=== PATIENT | male | born 1960 | race Caucasian/White ===

== ENCOUNTER → 2017-06-19 | Outpatient (CLI) | payer BC ==
--- NOTE | 2017-06-20 08:29 | XR ---
Left knee HISTORY: Pain in left knee, M25.562 3 views of the left knee No comparisons Bone mineralization and alignment are maintained. Possible mild joint space loss lateral patellar fac et, medial compartment. Suprapatellar increased density may be indicative of effusion however there i s overlying artifact. No fracture or dislocation. There may be some soft tissue swelling. IMPRESSION: No acute abnormality. Knee MRI may be of benefit. There may be mild osteoarthritis.
== END | disposition home or self-care (01) ==
LOC: RADXRMAIN 16:47
PROVIDERS: ATTEND Family Medicine
DX: M25.562 Pain in left knee (principal)

== ENCOUNTER → 2018-11-22 | Outpatient (CLI) | payer BC ==
--- NOTE | 2018-11-22 19:22 | P.STRESS ---
- Stress Test Note Stress Test Results/Findings: Exam Performed: stress test Exam Date: 11/22/18 Reason for Exam: CHEST PAIN Height: 5 ft 9 in Weight: 92.533 kg Protocol: ETT Stage: 2 Duration of Exercise: 6:31 Resting Heart Rate: 77 Resting Blood Pressure: 149/82 Maximum Achieved Heart Rate: 139 Maximum Achieved Blood Pressure: 227/77 85% PMHR: 137 100% PMHR: 161 METS: 7.9 Technologist Comment: Stress Test Results/Findings: This is a 57-year-old gentleman being evaluated for symptoms of chest pain. Stress data: Baseline EKG showed sinus rhythm with normal DE interval and QRS duration. Blood pressure at rest is 149/82 with pulse rate of 77. Patient walked on the Eliecer protocol for about 6 minutes and 31 seconds achieving a maximal rate of 139 with blood pressure 227/77. EKGs taken during and after the exercise did not reveal any significant changes from the baseline. Patient did not express any chest pain, complained of mild shortness of breath. Occasional PVCs were noted. Final impression: #1. Negative stress test #2 patient did not express any chest pain #3. Rare PVCs were noted
== END | disposition home or self-care (01) ==
LOC: RADNMMAIN 10:52
PROVIDERS: ATTEND Family Medicine
DX: R07.89 Other chest pain (principal)
CPT/HCPCS: 93017

== ENCOUNTER → 2019-01-04 | Day surgery (SDC) | payer BC ==
[2019-01-03 08:33] VITALS: BMI 30.1
[~2019-01-04] MED LIST: MIDAZOLAM 2 MG/2 ML VIAL IVP ONE; SODIUM CHLORIDE 0.9% 1,000 ML IV SCH; SODIUM CHLORIDE 0.9% 500 ML 500 ML IV ONE; fentaNYL (PF) 50 MCG/ML 2 ML AMP IVP ONE; fentaNYL (PF) 50 MCG/ML 2 ML AMP ONE
[2019-01-04 11:06] VITALS: TEMP 98
[2019-01-04] MEDS: BENZOCAINE SPRAY 1 CAN MUCOUS MEM ONE ×2 (12:02→12:07)
[2019-01-04] MEDS: MIDAZOLAM 2 MG/2 ML VIAL IVP ONE ×4 (12:13→12:20)
--- NOTE | 2019-01-04 12:52 | ECHOT ---
TRANSESOPHAGEAL ECHOCARDIOGRAM PREOPERATIVE DIAGNOSIS: Mitral regurgitation. POSTOPERATIVE DIAGNOSIS: Mitral regurgitation. Patient was given intravenous sedation with Versed and fentanyl and transesophageal echocardiogram was performed without any complications. Left ventricular chamber is normal in size with normal left ventricular systolic functions. There is a mild thickening of the mitral leaflet is noted with a severe prolapse of the posterior mitral leaflet, particularly involving the middle scallop. There is the flickering echo noted suggestive of a ruptured chordae tendineae. There is evidence of severe mitral regurgitation which is eccentric and there is a reversal of flow noted in the pulmonary vein. The left atrium is mildly dilated. There is no evidence of thrombus in the atrial appendage. The aortic wall morphology is normal. There is a mild aortic regurgitation is noted. The right ventricle and right atrium are normal in size. Interatrial septum is intact. There is no evidence of any PFO. Descending thoracic aorta is normal. FINAL IMPRESSION: 1. There is a mild thickening of the mitral leaflets noted with a severe prolapse or flail posterior mitral leaflet, particularly involving the middle scallop. 2. There is a severe mitral regurgitation with reversal of flow noted in the pulmonary vein. 3. The flow is eccentric and anteriorly directed. 4. The left atrium is mildly enlarged. 5. There is no evidence of thrombus in left atrial appendage. 6. There is a mild aortic regurgitation noted. 7. Interatrial septum is intact. There is no evidence of any patent foramen ovale. MMODL / IJN: [id number] /
[2019-01-04 13:35] VITALS: RESP 16
[2019-01-04 13:38] VITALS: BP 152/81; PULSE 99
== END ==
LOC: CATHCVL 10:27
PROVIDERS: ATTEND Internal Medicine Cardiovascular Disease
DX: I08.0 Rheumatic disorders of both mitral and aortic valves (principal); I10 Essential (primary) hypertension; Z79.899 Other long term (current) drug therapy
CPT/HCPCS: 93312; 93320; 93325; J2250; J3010

== ENCOUNTER → 2020-07-31 | Outpatient (CLI) | payer BC ==
--- NOTE | 2020-07-31 12:10 | US ---
EXAMINATION TYPE: US abdomen complete DATE OF EXAM: 07/31/2020 COMPARISON: NONE CLINICAL HISTORY: 59-year-old male R10.9 Unspecified abdominal pain. TECHNIQUE: Multiple sonographic images of the abdomen are obtained. FINDINGS: Culture Manager notes: Exam limited due to body habitus EXAM MEASUREMENTS: Liver Length: 15.7 cm Gallbladder Wall: .3 cm CBD: .7 cm Spleen: 10.7 cm Right Kidney: 10 x 4.2 x 3.3 cm Left Kidney: 10.8 x 4.7 x 4.0 cm Pancreas: Obscured by bowel gas Liver: wnl Gallbladder: No stones seen Evidence for sonographic Leong's sign: No CBD: Borderline to mildly dilated. Spleen: wnl Kidneys: No hydronephrosis. Upper IVC: limited due to bowel gas Abd Aorta: wnl IMPRESSION: 1. Bile duct borderline to mildly dilated at 7 mm. This may be normal a chronic for this patient. Cor relate with alkaline phosphatase and bilirubin levels to exclude early biliary obstruction. 2. No gallstones are seen.
== END | disposition home or self-care (01) ==
LOC: RADUSWWP 07:34
PROVIDERS: ATTEND Family Medicine
DX: K83.8 Other specified diseases of biliary tract (principal)
CPT/HCPCS: 76700

== ENCOUNTER 2021-02-05 11:37 | Emergency (ER) | payer BC ==
[2021-02-05 11:41] VITALS: TEMP 97.4
[2021-02-05] MEDS ORDERED: SODIUM CHLORIDE 0.9% 500 ML 500 ML IV STA (12:08)
--- NOTE | 2021-02-05 12:18 | ED ---
General Adult HPI - General Chief complaint: Chest Pain Stated complaint: Feeling faint Time Seen by Provider: 02/05/21 12:00 Source: patient, RN notes reviewed, old records reviewed Mode of arrival: ambulatory Limitations: no limitations - History of Present Illness Initial comments: 60-year-old male presenting for evaluation of generalized weakness, fatigue, lightheadedness. Additional complaint of some epigastric and lower chest pain which is been present throughout the day today. He has had history of epigastric abdominal pain for several months. Today he felt unwell. He states he's had a mild morning cough which is unchanged. No fever. He states he's felt somewhat shaky today. He has a history of hypertension. No history of CAD. He denies significant dyspnea. He denies vomiting. Denies fever. Denies lower extremity pain or swelling. Severity scale (1-10): 0 - Related Data Home Medications Medication Instructions Recorded Confirmed Dicyclomine [Bentyl] 10 mg PO TID PRN 02/05/21 02/05/21 lisinopriL [Zestril] 40 mg PO DAILY 02/05/21 02/05/21 Allergies Allergy/AdvReac Type Severity Reaction Status Date / Time No Known Allergies Allergy Verified 02/05/21 13:49 Review of Systems ROS Statement: Those systems with pertinent positive or pertinent negative responses have been documented in the HPI. ROS Other: All systems not noted in ROS Statement are negative. Past Medical History Past Medical History: Hypertension Additional Past Medical History / Comment(s): Heart murmur. History of Any Multi-Drug Resistant Organisms: None Reported Additional Past Surgical History / Comment(s): Carpal tunnel release right wrist. Past Anesthesia/Blood Transfusion Reactions: Motion Sickness Additional Past Anesthesia/Blood Transfusion Reaction / Comment(s): Has never had general anesthesia. Past Psychological History: No Psychological Hx Reported Smoking Status: Never smoker Past Alcohol Use History: Occasional Past Drug Use History: None Reported - Past Family History Father Family Medical History: Cancer Additional Family Medical History / Comment(s): Lung cancer. General Exam Limitations: no limitations General appearance: alert, in no apparent distress Head exam: Present: atraumatic, normocephalic Eye exam: Present: normal appearance, PERRL ENT exam: Present: normal exam Neck exam: Present: normal inspection. Absent: tenderness, meningismus Respiratory exam: Present: normal lung sounds bilaterally. Absent: respiratory distress, wheezes Cardiovascular Exam: Present: regular rate, normal rhythm GI/Abdominal exam: Present: soft. Absent: distended, tenderness, guarding, rebound Extremities exam: Present: normal inspection, normal capillary refill. Absent: pedal edema, calf tenderness Neurological exam: Present: alert, oriented X3, CN II-XII intact. Absent: motor sensory deficit Psychiatric exam: Present: normal affect, normal mood Skin exam: Present: warm, dry, intact. Absent: cyanosis, diaphoretic Course Vital Signs 02/05/21 02/05/21 02/05/21 11:39 12:05 13:52 Temperature 97.4 F L Pulse Rate 109 H 104 H Pulse Rate [ 100 Sitting] Pulse Rate [ 108 H Standing] Pulse Rate [ 101 H Supine] Respiratory 18 20 18 Rate Blood Pressure 165/77 144/88 Blood Pressure 141/84 [Sitting] Blood Pressure 157/87 [Standing] Blood Pressure 158/97 [Supine] O2 Sat by Pulse 96 95 99 Oximetry - Reevaluation(s) Reevaluation #1: 02/05/21 14:49 Patient feeling better, no chest pain. Patient prefers to be discharged home with outpatient follow-up. EKG Findings - EKG Comments: EKG Findings:: EKG: Sinus tachycardia, rate of 101, SD interval 178, QRS duration 94, QTC 438, no ST segment elevation Medical Decision Making - Medical Decision Making 60-year-old male with chief complaint of weakness and fatigue. He did report some mild chest discomfort which he states he had been present throughout the day today. No typical chest pain symptoms. EKG sinus rhythm without ST segment elevation. Chest x-rays negative for acute cardiac primary disease he has normal CBC, normal CMP, negative troponin, negative coronavirus test. I did initially plan to place this patient observation for serial cardiac enzymes and telemetry, although patient states she's feeling better prefers discharge with outpatient follow-up. He states he does have good follow-up with his primary care physician Dr. Baker. He is given strict return parameters. - Lab Data Result diagrams: 02/05/21 12:13 02/05/21 12:13 Lab Results 02/05/21 02/05/21 02/05/21 Range/Units 12:13 12:13 12:13 WBC 7.1 (3.8-10.6) k/uL RBC 4.79 (4.30-5.90) m/uL Hgb 15.7 (13.0-17.5) gm/dL Hct 45.7 (39.0-53.0) % MCV 95.4 (80.0-100.0) fL MCH 32.8 (25.0-35.0) pg MCHC 34.3 (31.0-37.0) g/dL RDW 13.2 (11.5-15.5) % Plt Count 236 (150-450) k/uL MPV 7.2 Neutrophils % 49 % Lymphocytes % 38 % Monocytes % 6 % Eosinophils % 4 % Basophils % 1 % Neutrophils # 3.5 (1.3-7.7) k/uL Lymphocytes # 2.7 (1.0-4.8) k/uL Monocytes # 0.5 (0-1.0) k/uL Eosinophils # 0.3 (0-0.7) k/uL Basophils # 0.1 (0-0.2) k/uL PT 10.1 (9.0-12.0) sec INR 0.9 (<1.2) APTT 22.2 (22.0-30.0) sec D-Dimer 0.18 (<0.60) mg/L FEU Sodium 136 L (137-145) mmol/L Potassium 4.5 (3.5-5.1) mmol/L Chloride 104 (98-107) mmol/L Carbon Dioxide 23 (22-30) mmol/L Anion Gap 9 mmol/L BUN 22 H (9-20) mg/dL Creatinine 0.89 (0.66-1.25) mg/dL Est GFR (CKD-EPI)AfAm >90 (>60 ml/min/1.73 sqM) Est GFR (CKD-EPI)NonAf >90 (>60 ml/min/1.73 sqM) Glucose 98 (74-99) mg/dL Calcium 9.1 (8.4-10.2) mg/dL Magnesium 2.0 (1.6-2.3) mg/dL Total Bilirubin 0.9 (0.2-1.3) mg/dL AST 30 (17-59) U/L ALT 31 (4-49) U/L Alkaline Phosphatase 71 (38-126) U/L Troponin I (0.000-0.034) ng/mL NT-Pro-B Natriuret Pep pg/mL Total Protein 7.3 (6.3-8.2) g/dL Albumin 4.2 (3.5-5.0) g/dL Lipase 100 (23-300) U/L Urine Color Urine Appearance (Clear) Urine pH (5.0-8.0) Ur Specific [place] (1.001-1.035) Urine Protein (Negative) Urine Glucose (UA) (Negative) Urine Ketones (Negative) Urine Blood (Negative) Urine Nitrite (Negative) Urine Bilirubin (Negative) Urine Urobilinogen (<2.0) mg/dL Ur Leukocyte Esterase (Negative) Coronavirus (PCR) (Not Detectd) 02/05/21 02/05/21 02/05/21 Range/Units 12:13 12:13 13:52 WBC (3.8-10.6) k/uL RBC (4.30-5.90) m/uL Hgb (13.0-17.5) gm/dL Hct (39.0-53.0) % MCV (80.0-100.0) fL MCH (25.0-35.0) pg MCHC (31.0-37.0) g/dL RDW (11.5-15.5) % Plt Count (150-450) k/uL MPV Neutrophils % % Lymphocytes % % Monocytes % % Eosinophils % % Basophils % % Neutrophils # (1.3-7.7) k/uL Lymphocytes # (1.0-4.8) k/uL Monocytes # (0-1.0) k/uL Eosinophils # (0-0.7) k/uL Basophils # (0-0.2) k/uL PT (9.0-12.0) sec INR (<1.2) APTT (22.0-30.0) sec D-Dimer (<0.60) mg/L FEU Sodium (137-145) mmol/L Potassium (3.5-5.1) mmol/L Chloride (98-107) mmol/L Carbon Dioxide (22-30) mmol/L Anion Gap mmol/L BUN (9-20) mg/dL Creatinine (0.66-1.25) mg/dL Est GFR (CKD-EPI)AfAm (>60 ml/min/1.73 sqM) Est GFR (CKD-EPI)NonAf (>60 ml/min/1.73 sqM) Glucose (74-99) mg/dL Calcium (8.4-10.2) mg/dL Magnesium (1.6-2.3) mg/dL Total Bilirubin (0.2-1.3) mg/dL AST (17-59) U/L ALT (4-49) U/L Alkaline Phosphatase (38-126) U/L Troponin I <0.012 (0.000-0.034) ng/mL NT-Pro-B Natriuret Pep 69 pg/mL Total Protein (6.3-8.2) g/dL Albumin (3.5-5.0) g/dL Lipase (23-300) U/L Urine Color Yellow Urine Appearance Clear (Clear) Urine pH 6.5 (5.0-8.0) Ur Specific [place] 1.019 (1.001-1.035) Urine Protein Negative (Negative) Urine Glucose (UA) Negative (Negative) Urine Ketones 1+ H (Negative) Urine Blood Negative (Negative) Urine Nitrite Negative (Negative) Urine Bilirubin Negative (Negative) Urine Urobilinogen 2.0 (<2.0) mg/dL Ur Leukocyte Esterase Negative (Negative) Coronavirus (PCR) (Not Detectd) 02/05/21 Range/Units 13:52 WBC (3.8-10.6) k/uL RBC (4.30-5.90) m/uL Hgb (13.0-17.5) gm/dL Hct (39.0-53.0) % MCV (80.0-100.0) fL MCH (25.0-35.0) pg MCHC (31.0-37.0) g/dL RDW (11.5-15.5) % Plt Count (150-450) k/uL MPV Neutrophils % % Lymphocytes % % Monocytes % % Eosinophils % % Basophils % % Neutrophils # (1.3-7.7) k/uL Lymphocytes # (1.0-4.8) k/uL Monocytes # (0-1.0) k/uL Eosinophils # (0-0.7) k/uL Basophils # (0-0.2) k/uL PT (9.0-12.0) sec INR (<1.2) APTT (22.0-30.0) sec D-Dimer (<0.60) mg/L FEU Sodium (137-145) mmol/L Potassium (3.5-5.1) mmol/L Chloride (98-107) mmol/L Carbon Dioxide (22-30) mmol/L Anion Gap mmol/L BUN (9-20) mg/dL Creatinine (0.66-1.25) mg/dL Est GFR (CKD-EPI)AfAm (>60 ml/min/1.73 sqM) Est GFR (CKD-EPI)NonAf (>60 ml/min/1.73 sqM) Glucose (74-99) mg/dL Calcium (8.4-10.2) mg/dL Magnesium (1.6-2.3) mg/dL Total Bilirubin (0.2-1.3) mg/dL AST (17-59) U/L ALT (4-49) U/L Alkaline Phosphatase (38-126) U/L Troponin I (0.000-0.034) ng/mL NT-Pro-B Natriuret Pep pg/mL Total Protein (6.3-8.2) g/dL Albumin (3.5-5.0) g/dL Lipase (23-300) U/L Urine Color Urine Appearance (Clear) Urine pH (5.0-8.0) Ur Specific [place] (1.001-1.035) Urine Protein (Negative) Urine Glucose (UA) (Negative) Urine Ketones (Negative) Urine Blood (Negative) Urine Nitrite (Negative) Urine Bilirubin (Negative) Urine Urobilinogen (<2.0) mg/dL Ur Leukocyte Esterase (Negative) Coronavirus (PCR) Not Detected (Not Detectd) Disposition Clinical Impression: Fatigue, Chest pain Disposition: HOME SELF-CARE Condition: Good Instructions (If sedation given, give patient instructions): Chest Pain (ED), Weakness (ED) Is patient prescribed a controlled substance at d/c from ED?: No Referrals: Usman Baker DO [Primary Care Provider] - 1-2 days Time of Disposition: 15:09
[2021-02-05 12:21] LABS: Basophils # (A) 0.1 k/uL (0-0.2); Basophils % (A) 1 %; Eosinophils # (A) 0.3 k/uL (0-0.7); Eosinophils % (A) 4 %; HCT 45.7 % (39.0-53.0); HGB 15.7 gm/dL (13.0-17.5); Lymphocytes # (A) 2.7 k/uL (1.0-4.8); Lymphocytes % (A) 38 %; MCH 32.8 pg (25.0-35.0); MCHC 34.3 g/dL (31.0-37.0); MCV 95.4 fL (80.0-100.0); Mean Platelet Volume 7.2; Monocytes # (A) 0.5 k/uL (0-1.0); Monocytes % (A) 6 %; Neutrophils # (A) 3.5 k/uL (1.3-7.7); Neutrophils % (A) 49 %; Platelet Count 236 k/uL (150-450); RBC 4.79 m/uL (4.30-5.90); RDW 13.2 % (11.5-15.5); WBC 7.1 k/uL (3.8-10.6)
[2021-02-05 12:33] LABS: ALT 31 U/L (4-49); AST 30 U/L (17-59); African American GFR (CKD) >90 (>60 ml/min/1.73 sqM); Albumin 4.2 g/dL (3.5-5.0); Alkaline Phosphatase 71 U/L (38-126); Anion Gap 9 mmol/L; Blood Urea Nitrogen 22 mg/dL (9-20); Calcium 9.1 mg/dL (8.4-10.2); Carbon Dioxide 23 mmol/L (22-30); Chloride 104 mmol/L (98-107); Glucose 98 mg/dL (74-99); Lipase 100 U/L (23-300); Non-African American GFR(CKD) >90 (>60 ml/min/1.73 sqM); Potassium 4.5 mmol/L (3.5-5.1); Sodium 136 mmol/L (137-145); Total Bilirubin 0.9 mg/dL (0.2-1.3); Total Protein 7.3 g/dL (6.3-8.2)
--- NOTE | 2021-02-05 12:37 | XR ---
EXAMINATION TYPE: XR chest 2V DATE OF EXAM: 02/05/2021 COMPARISON: None HISTORY: 60-year-old male with chest pain TECHNIQUE: PA and lateral views FINDINGS: Heart normal size. Aorta and pulmonary vasculature within normal limits. Streaky bibasilar opacificat ion. No other consolidation or pleural effusion seen. IMPRESSION: Strandy areas of bibasilar atelectasis. Otherwise, no acute process seen.
[2021-02-05 12:41] LABS: D-Dimer 0.18 mg/L FEU (<0.60); INR 0.9 (<1.2); Partial Thromboplastin Time 22.2 sec (22.0-30.0); Prothrombin Time 10.1 sec (9.0-12.0)
[2021-02-05 13:55] VITALS: RESP 18
[2021-02-05 15:05] LABS: Appearance,Urine Clear (Clear); Bilirubin,Urine Negative (Negative); Blood,Urine Negative (Negative); Color,Urine Yellow; Glucose,Urine (UA) Negative (Negative); Ketones,Urine 1+ (Negative); Leukocyte Esterase,Urine Negative (Negative); Nitrite,Urine Negative (Negative); PH, Urine 6.5 (5.0-8.0); Protein,Urine Negative (Negative); Specific Gravity,Urine 1.019 (1.001-1.035)
[2021-02-05 15:23] VITALS: BP 152/79; PULSE 85
== END 2021-02-05 15:23 | disposition home or self-care (01) ==
LOC: EC 11:37
DX: R07.89 Other chest pain (principal); R53.83 Other fatigue; I10 Essential (primary) hypertension; Z79.899 Other long term (current) drug therapy; Z20.822 Contact with and (suspected) exposure to COVID-19
CPT/HCPCS: 36415; 71046; 80053; 81003; 83690; 83735; 83880; 84484; 85025; 85379; 85610; 85730; 87635; 93005; 99285

== ENCOUNTER → 2021-05-27 | Outpatient (CLI) | payer BC ==
[~2021-05-27] MED LIST changes: +COSYNTROPIN 0.25 MG VIAL IVP ONE; -MIDAZOLAM 2 MG/2 ML VIAL IVP ONE; -SODIUM CHLORIDE 0.9% 1,000 ML IV SCH; -SODIUM CHLORIDE 0.9% 500 ML 500 ML IV ONE; +SODIUM CHLORIDE 0.9% 500 ML 500 ML in EMPTY BAG 1 BAG IV PRN; -fentaNYL (PF) 50 MCG/ML 2 ML AMP IVP ONE; -fentaNYL (PF) 50 MCG/ML 2 ML AMP ONE
[2021-05-27 09:19] VITALS: BP 90/58; PULSE 100; RESP 16; TEMP 97.5
== END ==
LOC: PROCWHC3 09:04
PROVIDERS: ATTEND Family Medicine
DX: R53.83 Other fatigue (principal)
CPT/HCPCS: 82533; 82024; 96374; 36415; J0834

== ENCOUNTER 2021-06-09 11:49 | Inpatient (IN) | payer BC ==
[2021-06-09] MEDS ORDERED: SODIUM CHLORIDE 0.9% 1,000 ML IV STA (12:30)
[2021-06-09 12:50] LABS: Basophils % (A) 0 %; Eosinophils # (A) 0.1 k/uL (0-0.7); Eosinophils % (A) 1 %; HCT 32.5 % (39.0-53.0); HGB 11.4 gm/dL (13.0-17.5); Lymphocytes # (A) 1.6 k/uL (1.0-4.8); Lymphocytes % (A) 10 %; MCH 29.5 pg (25.0-35.0); MCHC 35.1 g/dL (31.0-37.0); MCV 83.9 fL (80.0-100.0); Mean Platelet Volume 6.6; Monocytes # (A) 0.6 k/uL (0-1.0); Monocytes % (A) 4 %; Neutrophils # (A) 13.8 k/uL (1.3-7.7); Neutrophils % (A) 84 %; Platelet Count 348 k/uL (150-450); RBC 3.88 m/uL (4.30-5.90); RDW 14.3 % (11.5-15.5); WBC 16.4 k/uL (3.8-10.6)
--- NOTE | 2021-06-09 12:54 | ED ---
General Adult HPI - General Chief complaint: Weakness Stated complaint: weakness Time Seen by Provider: 06/09/21 12:00 Source: patient, RN notes reviewed, old records reviewed Mode of arrival: wheelchair Limitations: no limitations - History of Present Illness Initial comments: This a 60-year-old male who presents emergency department stating that he has been weak for about a year but in the last 4 months been considerably worse in the last 4 days he states is extremely bad. Patient states she's had chills but never noticed a fever. Patient states he has occasionally vomited but not consistently. Patient states he has occasionally had some diarrhea but not consistent. Patient states he worked a day for about an hour and after that was extremely tired. Patient denies any chest pain or palpitations. Patient denies headache patient denies numbness weakness. Patient denies abdominal pain patient denies any swelling to legs or calf tenderness. Patient states she's been being worked up by his primary medical care doctor but they have found no reason for his fatigue and his fatigue continues to get so bad that he is considered calling an embolus in the past. - Related Data Home Medications Medication Instructions Recorded Confirmed lisinopriL [Zestril] 30 mg PO HS 06/09/21 06/09/21 Allergies Allergy/AdvReac Type Severity Reaction Status Date / Time No Known Allergies Allergy Verified 06/09/21 12:37 Review of Systems ROS Statement: Those systems with pertinent positive or pertinent negative responses have been documented in the HPI. ROS Other: All systems not noted in ROS Statement are negative. Past Medical History Past Medical History: Hypertension Additional Past Medical History / Comment(s): Heart murmur, pfizer covid vaccine. History of Any Multi-Drug Resistant Organisms: None Reported Additional Past Surgical History / Comment(s): Carpal tunnel release right w rist. Past Anesthesia/Blood Transfusion Reactions: Motion Sickness Additional Past Anesthesia/Blood Transfusion Reaction / Comment(s): Has never had general anesthesia. Past Psychological History: No Psychological Hx Reported Smoking Status: Never smoker - Past Family History Father Family Medical History: Cancer Additional Family Medical History / Comment(s): Lung cancer. General Exam - General Exam Comments Initial Comments: GENERAL: Patient is well-developed and well-nourished. Patient is nontoxic and well- hydrated and is in mild distress. ENT: Neck is soft and supple. No significant lymphadenopathy is noted. Oropharynx is clear. Moist mucous membranes. Neck has full range of motion without eliciting any pain. EYES: The sclera were anicteric and conjunctiva were pink and moist. Extraocular movements were intact and pupils were equal round and reactive to light. Eyelids were unremarkable. PULMONARY: Unlabored respirations. Good breath sounds bilaterally. No audible rales rhonchi or wheezing was noted. CARDIOVASCULAR: There is a regular rate and rhythm without any murmurs gallops or rubs. ABDOMEN: Soft and nontender with normal bowel sounds. SKIN: Skin is clear with no lesions or rashes and otherwise unremarkable. NEUROLOGIC: Patient is alert and oriented x3. Cranial nerves II through XII are grossly intact. Motor and sensory are also intact. Normal speech, volume and content. Symmetrical smile. MUSCULOSKELETAL: Normal extremities with adequate strength and full range of motion. No lower extremity swelling or edema. No calf tenderness. LYMPHATICS: No significant lymphadenopathy is noted PSYCHIATRIC: Normal psychiatric evaluation. Limitations: no limitations Course Vital Signs 06/09/21 06/09/21 11:50 12:50 Temperature 97.4 F L Pulse Rate 90 84 Respiratory 16 18 Rate Blood Pressure 109/70 105/68 O2 Sat by Pulse 99 99 Oximetry Medical Decision Making - Medical Decision Making EKG shows normal sinus rhythm at 85 bpm NE interval is 176 QRS is 90 QT interval 384 QTC is 456. Patient's EKG shows no ST segment elevation or depression. - Lab Data Result diagrams: 06/09/21 12:39 06/09/21 12:39 Lab Results 06/09/21 06/09/21 06/09/21 Range/Units 12:39 12:39 12:39 WBC 16.4 H (3.8-10.6) k/uL RBC 3.88 L (4.30-5.90) m/uL Hgb 11.4 L (13.0-17.5) gm/dL Hct 32.5 L (39.0-53.0) % MCV 83.9 (80.0-100.0) fL MCH 29.5 (25.0-35.0) pg MCHC 35.1 (31.0-37.0) g/dL RDW 14.3 (11.5-15.5) % Plt Count 348 (150-450) k/uL MPV 6.6 Neutrophils % 84 % Lymphocytes % 10 % Monocytes % 4 % Eosinophils % 1 % Basophils % 0 % Neutrophils # 13.8 H (1.3-7.7) k/uL Lymphocytes # 1.6 (1.0-4.8) k/uL Monocytes # 0.6 (0-1.0) k/uL Eosinophils # 0.1 (0-0.7) k/uL Basophils # 0.0 (0-0.2) k/uL PT 11.4 (9.0-12.0) sec INR 1.1 (<1.2) APTT 24.3 (22.0-30.0) sec Sodium 136 L (137-145) mmol/L Potassium 4.0 (3.5-5.1) mmol/L Chloride 99 (98-107) mmol/L Carbon Dioxide 26 (22-30) mmol/L Anion Gap 11 mmol/L BUN 27 H (9-20) mg/dL Creatinine 1.39 H (0.66-1.25) mg/dL Est GFR (CKD-EPI)AfAm 63 (>60 ml/min/1.73 sqM) Est GFR (CKD-EPI)NonAf 54 (>60 ml/min/1.73 sqM) Glucose 142 H (74-99) mg/dL Plasma Lactic Acid [place] (0.7-2.0) mmol/L Calcium 9.1 (8.4-10.2) mg/dL Magnesium 2.0 (1.6-2.3) mg/dL Total Bilirubin 0.8 (0.2-1.3) mg/dL AST 41 (17-59) U/L ALT 41 (4-49) U/L Alkaline Phosphatase 76 (38-126) U/L Troponin I (0.000-0.034) ng/mL Total Protein 6.7 (6.3-8.2) g/dL Albumin 3.3 L (3.5-5.0) g/dL TSH 1.590 (0.465-4.680) mIU/L Urine Color Urine Appearance (Clear) Urine pH (5.0-8.0) Ur Specific [place] (1.001-1.035) Urine Protein (Negative) Urine Glucose (UA) (Negative) Urine Ketones (Negative) Urine Blood (Negative) Urine Nitrite (Negative) Urine Bilirubin (Negative) Urine Urobilinogen (<2.0) mg/dL Ur Leukocyte Esterase (Negative) Urine RBC (0-5) /hpf Urine WBC (0-5) /hpf Ur Squamous Epith Cells (0-4) /hpf Urine Bacteria (None) /hpf Hyaline Casts (0-2) /lpf Urine Mucus (None) /hpf Urine Opiates Screen (NotDetected) Ur Oxycodone Screen (NotDetected) Urine Methadone Screen (NotDetected) Ur Propoxyphene Screen (NotDetected) Ur Barbiturates Screen (NotDetected) U Tricyclic Antidepress (NotDetected) Ur Phencyclidine Scrn (NotDetected) Ur Amphetamines Screen (NotDetected) U Methamphetamines Scrn (NotDetected) U Benzodiazepines Scrn (NotDetected) Urine Cocaine Screen (NotDetected) U Marijuana (THC) Screen (NotDetected) 06/09/21 06/09/21 06/09/21 Range/Units 12:39 12:39 12:39 WBC (3.8-10.6) k/uL RBC (4.30-5.90) m/uL Hgb (13.0-17.5) gm/dL Hct (39.0-53.0) % MCV (80.0-100.0) fL MCH (25.0-35.0) pg MCHC (31.0-37.0) g/dL RDW (11.5-15.5) % Plt Count (150-450) k/uL MPV Neutrophils % % Lymphocytes % % Monocytes % % Eosinophils % % Basophils % % Neutrophils # (1.3-7.7) k/uL Lymphocytes # (1.0-4.8) k/uL Monocytes # (0-1.0) k/uL Eosinophils # (0-0.7) k/uL Basophils # (0-0.2) k/uL PT (9.0-12.0) sec INR (<1.2) APTT (22.0-30.0) sec Sodium (137-145) mmol/L Potassium (3.5-5.1) mmol/L Chloride (98-107) mmol/L Carbon Dioxide (22-30) mmol/L Anion Gap mmol/L BUN (9-20) mg/dL Creatinine (0.66-1.25) mg/dL Est GFR (CKD-EPI)AfAm (>60 ml/min/1.73 sqM) Est GFR (CKD-EPI)NonAf (>60 ml/min/1.73 sqM) Glucose (74-99) mg/dL Plasma Lactic Acid [place] 1.7 (0.7-2.0) mmol/L Calcium (8.4-10.2) mg/dL Magnesium (1.6-2.3) mg/dL Total Bilirubin (0.2-1.3) mg/dL AST (17-59) U/L ALT (4-49) U/L Alkaline Phosphatase (38-126) U/L Troponin I <0.012 (0.000-0.034) ng/mL Total Protein (6.3-8.2) g/dL Albumin (3.5-5.0) g/dL TSH (0.465-4.680) mIU/L Urine Color Urine Appearance (Clear) Urine pH (5.0-8.0) Ur Specific [place] (1.001-1.035) Urine Protein (Negative) Urine Glucose (UA) (Negative) Urine Ketones (Negative) Urine Blood (Negative) Urine Nitrite (Negative) Urine Bilirubin (Negative) Urine Urobilinogen (<2.0) mg/dL Ur Leukocyte Esterase (Negative) Urine RBC (0-5) /hpf Urine WBC (0-5) /hpf Ur Squamous Epith Cells (0-4) /hpf Urine Bacteria (None) /hpf Hyaline Casts (0-2) /lpf Urine Mucus (None) /hpf Urine Opiates Screen Detected H (NotDetected) Ur Oxycodone Screen Not Detected (NotDetected) Urine Methadone Screen Not Detected (NotDetected) Ur Propoxyphene Screen Not Detected (NotDetected) Ur Barbiturates Screen Not Detected (NotDetected) U Tricyclic Antidepress Not Detected (NotDetected) Ur Phencyclidine Scrn Not Detected (NotDetected) Ur Amphetamines Screen Not Detected (NotDetected) U Methamphetamines Scrn Not Detected (NotDetected) U Benzodiazepines Scrn Not Detected (NotDetected) Urine Cocaine Screen Not Detected (NotDetected) U Marijuana (THC) Screen Not Detected (NotDetected) 06/09/21 Range/Units 12:39 WBC (3.8-10.6) k/uL RBC (4.30-5.90) m/uL Hgb (13.0-17.5) gm/dL Hct (39.0-53.0) % MCV (80.0-100.0) fL MCH (25.0-35.0) pg MCHC (31.0-37.0) g/dL RDW (11.5-15.5) % Plt Count (150-450) k/uL MPV Neutrophils % % Lymphocytes % % Monocytes % % Eosinophils % % Basophils % % Neutrophils # (1.3-7.7) k/uL Lymphocytes # (1.0-4.8) k/uL Monocytes # (0-1.0) k/uL Eosinophils # (0-0.7) k/uL Basophils # (0-0.2) k/uL PT (9.0-12.0) sec INR (<1.2) APTT (22.0-30.0) sec Sodium (137-145) mmol/L Potassium (3.5-5.1) mmol/L Chloride (98-107) mmol/L Carbon Dioxide (22-30) mmol/L Anion Gap mmol/L BUN (9-20) mg/dL Creatinine (0.66-1.25) mg/dL Est GFR (CKD-EPI)AfAm (>60 ml/min/1.73 sqM) Est GFR (CKD-EPI)NonAf (>60 ml/min/1.73 sqM) Glucose (74-99) mg/dL Plasma Lactic Acid [place] (0.7-2.0) mmol/L Calcium (8.4-10.2) mg/dL Magnesium (1.6-2.3) mg/dL Total Bilirubin (0.2-1.3) mg/dL AST (17-59) U/L ALT (4-49) U/L Alkaline Phosphatase (38-126) U/L Troponin I (0.000-0.034) ng/mL Total Protein (6.3-8.2) g/dL Albumin (3.5-5.0) g/dL TSH (0.465-4.680) mIU/L Urine Color Yellow Urine Appearance Cloudy (Clear) Urine pH 5.5 (5.0-8.0) Ur Specific [place] 1.028 (1.001-1.035) Urine Protein 1+ H (Negative) Urine Glucose (UA) Negative (Negative) Urine Ketones Negative (Negative) Urine Blood Small H (Negative) Urine Nitrite Negative (Negative) Urine Bilirubin Negative (Negative) Urine Urobilinogen 4.0 (<2.0) mg/dL Ur Leukocyte Esterase Negative (Negative) Urine RBC 5 (0-5) /hpf Urine WBC 7 H (0-5) /hpf Ur Squamous Epith Cells 2 (0-4) /hpf Urine Bacteria Occasional H (None) /hpf Hyaline Casts 160 H (0-2) /lpf Urine Mucus Few H (None) /hpf Urine Opiates Screen (NotDetected) Ur Oxycodone Screen (NotDetected) Urine Methadone Screen (NotDetected) Ur Propoxyphene Screen (NotDetected) Ur Barbiturates Screen (NotDetected) U Tricyclic Antidepress (NotDetected) Ur Phencyclidine Scrn (NotDetected) Ur Amphetamines Screen (NotDetected) U Methamphetamines Scrn (NotDetected) U Benzodiazepines Scrn (NotDetected) Urine Cocaine Screen (NotDetected) U Marijuana (THC) Screen (NotDetected) Disposition Clinical Impression: Generalized weakness, Renal insufficiency, Anemia, Leukocytosis Disposition: ADMITTED IP TO THIS [facility] Referrals: Usman Baker DO [Primary Care Provider] - 1-2 days Time of Disposition: 14:00
[2021-06-09 13:02] LABS: INR 1.1 (<1.2); Partial Thromboplastin Time 24.3 sec (22.0-30.0); Prothrombin Time 11.4 sec (9.0-12.0)
[2021-06-09 13:05] LABS: Albumin 3.3 g/dL (3.5-5.0); Calcium 9.1 mg/dL (8.4-10.2); Total Bilirubin 0.8 mg/dL (0.2-1.3); Total Protein 6.7 g/dL (6.3-8.2)
--- NOTE | 2021-06-09 13:15 | XR ---
EXAMINATION TYPE: XR chest 2V DATE OF EXAM: 06/09/2021 COMPARISON: 02/05/2021 HISTORY: Weakness TECHNIQUE: Frontal and lateral views of the chest are obtained. FINDINGS: Linear densities in the left lung base most likely represent atelectasis versus scarring. Lungs are o therwise clear. Cardiac silhouette is not enlarged. IMPRESSION: No acute cardiopulmonary process.
[2021-06-09 13:23] LABS: Appearance,Urine Cloudy (Clear); Bacteria,Urine Occasional /hpf; Bilirubin,Urine Negative (Negative); Blood,Urine Small (Negative); Color,Urine Yellow; Glucose,Urine (UA) Negative (Negative); Hyaline Casts,Urine 160 /lpf (0-2); Ketones,Urine Negative (Negative); Leukocyte Esterase,Urine Negative (Negative); Mucus,Urine Few /hpf; Nitrite,Urine Negative (Negative); PH, Urine 5.5 (5.0-8.0); Protein,Urine 1+ (Negative); RBC,Urine 5 /hpf (0-5); Specific Gravity,Urine 1.028 (1.001-1.035); Squamous Epithelial Cell,Urine 2 /hpf (0-4); WBC,Urine 7 /hpf (0-5)
[2021-06-09 13:24] LABS: Amphetamine Screen,Urine Not Detected (NotDetected); Barbiturate Screen,Urine Not Detected (NotDetected); Benzodiazepines Screen,Urine Not Detected (NotDetected); Cocaine Screen,Urine Not Detected (NotDetected); Methadone Screen, Urine Not Detected (NotDetected); Opiate Screen,Urine Detected (NotDetected); Oxycodone Screen, Urine Not Detected (NotDetected); Phencyclidine Screen,Urine Not Detected (NotDetected); Tricyclic Antidepressant,Urine Not Detected (NotDetected); Urn Cannabinoid Scrn Not Detected (NotDetected)
[2021-06-09] MEDS ORDERED: SODIUM CHLORIDE 0.9% 1,000 ML IV ONE (14:00)
[2021-06-09] MEDS ORDERED: RX INFO: IV CONTRAST WAS GIVEN 1 EACH MISC MISCELLANE PRN (18:09)
[2021-06-09] MEDS ORDERED: HYDROcodone/APAP 5-325MG 1 EACH TAB PO PRN (18:11)
[2021-06-09] MEDS ORDERED: ALPRAZolam 0.25 MG TAB PO PRN (18:11)
[2021-06-09] MEDS: IOPAMIDOL CONTRAST (ORAL USE) VIAL PO PRN ×2 (19:09→20:05)
--- NOTE | 2021-06-09 21:02 | HP ---
HISTORY AND PHYSICAL CHIEF COMPLAINT: Generalized weakness and tiredness. HISTORY OF PRESENT ILLNESS: This 60-year-old gentleman with a past medical history of multiple medical problems including hypertension, history of heart murmur, history of carpal tunnel syndrome, history of motion sickness, being followed by Dr. Usman Baker in the outpatient setting, is complaining of generalized weakness and tiredness for the last 6 months. Patient works in [employer]. In the beginning, the patient was unable to finish work and patient seems to be tired and the patient is able to work shortened hours and at one point the patient has not been able to work continuous for 1 hour and patient has to sleep off because of the tiredness. The patient also was found to have moderately severe mitral regurgitation with a rupture in the DAPHNE [place] [address] Juárez but however further evaluation in [place] did not necessitate any surgery according to the patient. The patient also reports a weight loss of 25 pounds for the last one week. The patient also complaining of significant anorexia and loss of appetite also. On admission, patient was found to have mild renal failure with elevated WBC. Patient admitted for evaluation and treatment. The patient does not have any history of fever, rigors. There is no history any headache, loss of consciousness, seizures at this time. The patient did take PagerD[employer] vaccine in February. The patient finished 2 courses and the patient did not have any contact with any history of any infected individuals of the Covid. No history of recent travel elsewhere either. The creatinine is 1.38, as mentioned earlier. UA showed multiple hyaline casts also. There is no history of fever, rigors, chills. PAST MEDICAL HISTORY: History of hypertension, history of cardiac murmur, mitral regurgitation. History of motion sickness. MEDICATIONS: Prior to admission include: Lisinopril 30 mg q.h.s. ALLERGIES: None. FAMILY HISTORY: History of lung cancer in the family. SOCIAL HISTORY: No history of smoking. No history of alcohol intake. REVIEW OF SYSTEMS: ENT: No diminished vision. No diminished hearing. CARDIO system: No angina or palpitations. RESPIRATORY: As mentioned earlier. GI: As mentioned earlier. : No dysuria. NERVOUS SYSTEM: No numbness, weakness. ALLERGY/IMMUNOLOGY: No asthma or hayfever. MUSCULOSKELETAL as mentioned earlier. HEMATOLOGY/ONCOLOGY: No history of anemia. ENDOCRINE: No history of diabetes or hypothyroidism. CONSTITUTIONAL: As mentioned earlier. DERMATOLOGY: Negative. RHEUMATOLOGY negative. PSYCHIATRY as mentioned earlier. PHYSICAL EXAMINATION: Alert and oriented x2. Pulse 88, blood pressure 125/77, respirations 16, temperature 98.2. Pulse ox 100 percent on room air. HEENT: Conjunctivae normal. Oral mucosa moist. NECK is no jugular venous distention. No carotid bruit. No lymph node enlargement. CARDIOVASCULAR system: S1, S2 muffled. Pansystolic murmur heard mainly in the bases. RESPIRATION: Breath sounds diminished in the bases. No rhonchi. No crackles. ABDOMEN: Soft, nontender. No mass palpable. LEGS: No edema. No swelling. NERVOUS SYSTEM: Higher functions as mentioned earlier. Moves all 4 limbs. No focal motor or sensory deficits. Mild diffuse weakness. LYMPHATICS: No lymph nodes palpable in the neck, axillae or groin. SKIN: No ulcers, rashes or bleeding. JOINTS: No active deforming arthropathy. LABS: WBC 16.2, hemoglobin 7.4, sodium 136. Other labs are noted. ASSESSMENT: 1. Generalized weakness and tiredness with possible acute renal failure. 2. Rule out infective endocarditis. 3. Severe mitral regurgitation. 4. Severe mitral regurgitation with pansystolic murmur. 5. Increased WBC, rule out sepsis. 6. Anemia, normocytic. 7. Rule out urinary tract infection. 8. Hypertension. 9. History of cardiac murmur, mitral regurgitation. 10.History of carpal tunnel syndrome. 11.History of motion sickness. 12.History of recent weight loss. 13.FULL CODE. RECOMMENDATIONS AND DISCUSSION: This 60-year-old gentleman who presented with multiple complex medical issues, at this time, we will monitor the patient closely. Continue the current medications, management and symptomatic treatment. I will obtain cultures at this time. Otherwise, I would recommend cardiology consultation and neurology consultation as well. Gastroenterology will be also be consulted for anorexia and recent weight loss. CT scan of the abdomen and pelvis and chest and brain is also ordered. Basic blood work also has been ordered. Symptomatic treatment will be provided. DVT prophylaxis. Prognosis guarded because of multiple complex medical issues. Further recommendations to follow. A copy of this dictation will be forwarded to Dr. Usman Baker, who is the primary physician. See orders for details. Prognosis guarded. Discussed with the patient at length. The patient also had previous DAPHNE as mentioned earlier, we will also obtain all records and get an opinion from Cardiology regarding the cardiac valvular status also. The patient might need repeat DAPHNE at this point. MARLEY / NATHAN: [id number] / MTDD
[2021-06-09 21:05] LABS: C Reactive Protein 8.5 mg/dL (<1.0)
--- NOTE | 2021-06-09 21:25 | CT ---
EXAMINATION TYPE: CT brain wo con DATE OF EXAM: 06/09/2021 COMPARISON: MRI brain 09/06/2011 INDICATION: weakness, weight loss DLP: 1123.4 mGycm, Automated exposure control for dose reduction was used. CONTRAST: None CT of the brain is performed utilizing 3 mm thick sections through the posterior fossa and 3 mm thick sections through the remaining calvarium. Study is performed within 24 hours of arrival to the hosp [facility]. No abnormal hyperdensity is present to suggest an acute intracranial hemorrhage. No mass lesion is evident. Some physiologic basal ganglion calcification is present bilaterally. No acute infarcts are evident. Ventricles and sulci are appropriate for the patient age. Paranasal sinuses and mastoid air cells within the [id number] are clear. IMPRESSIONS: 1. No acute intracranial process.
[2021-06-09] MEDS: HEPARIN SODIUM,PORCINE/PF 5,000 UNIT/0.5 ML SYRINGE SQ SCH (21:31)
[2021-06-10] MEDS ORDERED: BENZOCAINE/MENTHOL LOZENG 1 EACH LOZENGE MUCOUS MEM PRN (00:24)
[2021-06-10] MEDS ORDERED: guaiFENesin SYRUP 100MG/5ML 200 MG/10 ML CUP PO PRN (00:25)
--- NOTE | 2021-06-10 01:34 | CT ---
EXAMINATION TYPE: CT ChestAbdPelvis w con DATE OF EXAM: 06/09/2021 COMPARISON: None HISTORY: Weight loss, anemia, leukocytosis, renal insufficency. CT DLP: 1470.4 mGycm Automated exposure control for dose reduction was used. CONTRAST: Performed with IV Contrast, patient injected with 100 mL of Isovue 300. Images obtained from the thoracic inlet to the floor the pelvis with oral and IV contrast. There is mild subsegmental atelectasis at the lung bases. Heart is borderline enlarged. There is no p ericardial effusion. There is no pleural effusion. There is no evidence of a pulmonary mass. There is no mediastinal adenopathy. There are no hilar masses. Trachea appears normal. Liver spleen stomach pancreas gallbladder appear intact. The bile ducts are not dilated. There is no adrenal mass. Kidneys show satisfactory contrast opacification. There is no hydronephrosi s. Delayed images show normal renal excretion. There is no retroperitoneal adenopathy. Ureters are no t dilated. The bladder distends smoothly. Prostate is large and measures 5.7 cm. There is fat contain ing right inguinal hernia. There is no free fluid in the pelvis. There is no mesenteric edema. There is no ascites or free air. There is no bowel obstruction. Appendi x appears normal. The lumbar vertebra and thoracic vertebra have normal alignment. There is no compression fracture. [place] pelvis is intact. The hip joints are intact. There is no hip dysplasia. There is some sclerosis in the inferior right femoral head consistent with small osteochondroma. There is no evidence of a soft tissue mass. Shoulder joints are intact. IMPRESSION: Mild prostate enlargement. No evidence of renal stone or obstruction. Mild subsegmental atelectasis at the lung bases. No suspicious pulmonary mass.
[2021-06-10 07:51] VITALS: RESP 16
[2021-06-10 08:59] LABS: Basophils # (A) 0.02 X 10*3/uL (0.00-0.10); Basophils % (A) 0.3 %; Eosinophils # (A) 0.14 X 10*3/uL (0.04-0.35); Eosinophils % (A) 1.8 %; HCT 28.1 % (39.6-50.0); HGB 9.4 g/dL (13.0-17.0); Lymphocytes # (A) 1.56 X 10*3/uL (0.90-5.00); Lymphocytes % (A) 20.2 %; MCHC 33.5 g/dL (32.0-37.0); MCV 86.7 fL (80.0-97.0); Mean Platelet Volume 9.3 fL (9.5-12.2); Monocytes # (A) 0.75 X 10*3/uL (0.20-1.00); Monocytes % (A) 9.7 %; Neutrophils # (A) 5.24 X 10*3/uL (1.80-7.70); Neutrophils % (A) 67.6 %; Platelet Count 311 X 10*3/uL (140-440); RBC 3.24 X 10*6/uL (4.40-5.60); RDW 14.1 % (11.5-14.5); WBC 7.74 X 10*3/uL (4.50-10.00)
[2021-06-10] MEDS: HEPARIN SODIUM,PORCINE/PF 5,000 UNIT/0.5 ML SYRINGE SQ SCH ×2 (09:30→20:20)
[2021-06-10] MEDS: MULTIVITAMINS, THERA 1 EACH TAB PO SCH (09:30)
[2021-06-10] MEDS: THIAMINE 100 MG TAB PO SCH (09:30)
[2021-06-10] MEDS: FOLIC ACID 1 MG TAB PO SCH (09:30)
[2021-06-10 10:37] LABS: African American GFR (CKD) 117.2 (60.0-200.0); Anion Gap 4.1 mmol/L (4.00-12.00); BUN/Creat Ratio 22.86 Ratio (12.00-20.00); Calcium 8.1 mg/dL (8.7-10.3); Carbon Dioxide 26.9 mmol/L (21.6-31.8); Non-African American GFR(CKD) 101.1 (60.0-200.0); Potassium 4.5 mmol/L (3.5-5.5)
--- NOTE | 2021-06-10 10:56 | P.CRDCN ---
History of Present Illness History of present illness: HISTORY OF PRESENTING ILLNESS This is a pleasant 60-year-old male past medical history significant for mitral regurgitation, mitral valve prolapse and hypertension. He follows in the office with Dr. Raya in [facility]. We have been asked to see in consultation for mitral regurgitation. He presented to the hospital with symptoms of fever, chills, weakness and fatigue. He states for the previous one year he has noticed increased fatigue. His fatigue occurs hours after any activities. He states he can do something minor around the house and throughout the activity he feels fine but then a couple of hours later he is completely exhausted and can no longer do anything else for the rest of the day. He denies any shortness of breath, dizziness or palpitations. He has seen his primary cheese cooker regarding this and she has advised a secondary medical workup. He does have valvular heart disease with mitral valve prolapse and moderate to severe mitral valve regurgitation. This is followed closely by his primary cheese cooker and there is no plans for surgical repair at this time. EKG on arrival reveals sinus mechanism with no acute ST or T wave abnormalities noted. Chest x-ray is negative for an acute cardiopulmonary process. Laboratory data reviewed, WBC on admission 16.4 repeat today 7.7, hemoglobin on admission 11.4 with a baseline in January 2015 with a repeat today of 9.4, platelets 311, ESR 70, sodium 137, potassium 4.5, creatinine on admission 1. 3 repeat today 0.7, magnesium 2.0, troponin negative 1, TSH 1.59 and CRP 8.5. Prior daily cardiac medications include lisinopril 30 mg daily. REVIEW OF SYSTEMS At the time of my exam: CONSTITUTIONAL: Denies fever or chills. CARDIOVASCULAR: Denies chest pain, shortness of breath, orthopnea, PND or palpitations. RESPIRATORY: Denies cough. GASTROINTESTINAL: Denies abdominal pain, diarrhea, constipation, nausea or vomiting. MUSCULOSKELETAL: Denies myalgias. NEUROLOGIC: Denies numbness, tingling, headacbe or weakness. ENDOCRINE: Denies fatigue, weight change, polydipsia or polyurina. GENITOURINARY: Denies burning, hematuria or urgency with micturation. HEMATOLOGIC: Denies history of anemia or bleeding. PHYSICAL EXAMINATION Blood pressure 103/65 heart rate 77 afebrile and maintaining oxygen saturation on room air. CONSTITUTIONAL: No apparent distress. HEENT: Head is normocephalic. Pupils are equal, round. Sclerae anicteric. Mucous membranes of the mouth are moist. No JVD. No carotid bruit. CHEST EXAMINATION: Lungs are clear to auscultation. No chest wall tenderness is noted on palpation or with deep breathing. HEART EXAMINATION: Regular rate and rhythm. S1, S2 heard. Systolic ejection murmur at the apex, no gallops or rub. ABDOMEN: Soft, nontender. Positive bowel sounds. EXTREMITIES: 2+ peripheral pulses, no lower extremity edema and no calf tenderness. NEUROLOGIC EXAMINATION: Patient is awake, alert and oriented x3. ASSESSMENT Generalized weakness Leukocytosis Acute kidney injury Mitral regurgitation, moderate Mitral valve prolapse PLAN Symptoms are not correlated to mitral valve disease. Consider other etiologies for weakness. Consider possible hemolytic anemia on the differential. We will check reticulocyte count and haptoblobin. Follow up with his primary cheese cooker upon discharge. No further cardiac work up at this time. Thank you kindly for this consultation. Nurse Practitioner note has been reviewed, I agree with a documented findings and plan of care. Patient was seen and examined. Past Medical History Past Medical History: Hypertension Additional Past Medical History / Comment(s): Heart murmur, pfizer covid vaccine. History of Any Multi-Drug Resistant Organisms: None Reported Additional Past Surgical History / Comment(s): Carpal tunnel release right wrist. Past Anesthesia/Blood Transfusion Reactions: Motion Sickness Additional Past Anesthesia/Blood Transfusion Reaction / Comment(s): Has never had general anesthesia. Past Psychological History: No Psychological Hx Reported Smoking Status: Never smoker Past Alcohol Use History: Occasional Past Drug Use History: None Reported - Past Family History Father Family Medical History: Cancer Additional Family Medical History / Comment(s): Lung cancer. Medications and Allergies Home Medications Medication Instructions Recorded Confirmed Type lisinopriL [Zestril] 30 mg PO HS 06/09/21 06/09/21 History Allergies Allergy/AdvReac Type Severity Reaction Status Date / Time No Known Allergies Allergy Verified 06/09/21 12:37 Physical Exam Vitals: Vital Signs Temp Pulse Pulse Pulse Resp BP BP 06/10/21 08:00 84 77 16 06/10/21 07:50 97.6 F 77 16 06/10/21 01:57 97.4 F L 80 15 114/73 06/09/21 19:05 97.5 F L 84 17 06/09/21 18:07 88 16 06/09/21 17:31 98.2 F 88 16 06/09/21 16:23 78 18 104/65 06/09/21 15:05 97.6 F 75 18 104/66 06/09/21 12:50 84 18 105/68 06/09/21 11:50 97.4 F L 90 16 109/70 BP BP BP Pulse Ox 06/10/21 08:00 06/10/21 07:50 103/65 97 06/10/21 01:57 118/74 100/63 97 06/09/21 19:05 109/68 98 06/09/21 18:07 06/09/21 17:31 125/76 100 06/09/21 16:23 99 06/09/21 15:05 99 06/09/21 12:50 99 06/09/21 11:50 99 Intake and Output 06/09/21 06/10/21 06/10/21 22:59 06:59 14:59 Intake Total 350 Balance 350 Intake: Intake, IV Titration 150 Amount Sodium Chloride 0.9% 1, 150 000 ml @ 75 mls/hr IV . [id number] ONE Rx#:[id number] Oral 200 Other: # Voids 1 2 Weight 87.543 kg Results 06/10/21 06:40 06/10/21 06:40 Cardiac Enzymes 06/09/21 06/09/21 06/09/21 Range/Units 12:39 12:39 20:30 AST 41 (17-59) U/L Lactate Dehydrogenase 558 (313-618) U/L Troponin I <0.012 (0.000-0.034) ng/mL Coagulation 06/09/21 Range/Units 12:39 PT 11.4 (9.0-12.0) sec APTT 24.3 (22.0-30.0) sec CBC 06/09/21 06/10/21 Range/Units 12:39 06:40 WBC 16.4 H 7.74 (3.8-10.6) k/uL RBC 3.88 L 3.24 L (4.30-5.90) m/uL Hgb 11.4 L 9.4 L (13.0-17.5) gm/dL Hct 32.5 L 28.1 L (39.0-53.0) % Plt Count 348 311 (150-450) k/uL Comprehensive Metabolic Panel 06/09/21 Range/Units 12:39 Sodium 136 L (137-145) mmol/L Potassium 4.0 (3.5-5.1) mmol/L Chloride 99 (98-107) mmol/L Carbon Dioxide 26 (22-30) mmol/L BUN 27 H (9-20) mg/dL Creatinine 1.39 H (0.66-1.25) mg/dL Glucose 142 H (74-99) mg/dL Calcium 9.1 (8.4-10.2) mg/dL AST 41 (17-59) U/L ALT 41 (4-49) U/L Alkaline Phosphatase 76 (38-126) U/L Total Protein 6.7 (6.3-8.2) g/dL Albumin 3.3 L (3.5-5.0) g/dL Current Medications Generic Name Dose Route Start Last Admin Trade Name Freq PRN Reason Stop Dose Admin Hydrocodone Bitart/Acetaminophen 1 each 06/09/21 18:11 Hydrocodone/Apap 5-325mg 1 Each Tab PO Q6HR PRN Pain Alprazolam 0.25 mg 06/09/21 18:11 Alprazolam 0.25 Mg Tab PO TID PRN Anxiety Benzocaine/Menthol 1 each 06/10/21 00:24 06/10/21 00:37 Benzocaine/Menthol Lozeng 1 Each Lozenge MUCOUS MEM 1 each Q6HR PRN Administration Cough Folic Acid 1 mg 06/10/21 12:00 Folic Acid 1 Mg Tab PO DAILY@1200 DIANE Guaifenesin 200 mg 06/10/21 00:25 Guaifenesin Syrup 100mg/5ml 200 Mg/10 Ml Cup PO Q6H PRN Cough Heparin Sodium (Porcine) 5,000 unit 06/09/21 21:00 06/09/21 21:31 Heparin Sodium,Porcine/Pf 5,000 Unit/0.5 Ml Syringe SQ 5,000 unit Q12HR DIANE Administration Miscellaneous Information 1 each 06/09/21 18:09 Rx Info: Iv Contrast Was Given 1 Each Misc MISCELLANE 06/11/21 18:10 DAILY PRN Per Protocol Multivitamins 1 each 06/10/21 12:00 Multivitamins, Thera 1 Each Tab PO DAILY@1200 DIANE Thiamine HCl 100 mg 06/10/21 12:00 Thiamine 100 Mg Tab PO DAILY@1200 DIANE Intake and Output 06/09/21 06/10/21 06/10/21 22:59 06:59 14:59 Intake Total 350 Balance 350 Intake: Intake, IV Titration 150 Amount Sodium Chloride 0.9% 1, 150 000 ml @ 75 mls/hr IV . [id number] ONE Rx#:[id number] Oral 200 Other: # Voids 1 2 Weight 87.543 kg 06/10/21 06:40 06/09/21 12:39
--- NOTE | 2021-06-10 12:49 | ECHOF ---
Referral Reason:severe MR MEASUREMENTS -------- HEIGHT: 175.3 cm WEIGHT: 87.5 kg BP: 100/63 IVSd: 1.4 cm (0.6 - 1.1) LVIDd: 5.6 cm (3.9 - 5.3) LVPWd: 1.4 cm (0.6 - 1.1) EDV(Teich): 153 ml IVSs: 2.1 cm LVIDs: 3.5 cm LVPWs: 1.8 cm %IVS Thck: 44 % ESV(Teich): 52 ml EF(Teich): 66 % %FS: 37 % SV(Teich): 101 ml LA Diam: 4.3 cm (2.7 - 3.8) RVIDd: 3.7 cm (< 3.3) LALs A4C: 7.9 cm LAAs A4C: 36.2 cm LAESV A-L A4C: 142 ml LAESV MOD A4C: 126 ml LALs A2C: 6.8 cm LAAs A2C: 26.3 cm LAESV A-L A2C: 86 ml LAESV MOD A2C: 81 ml LAESV(A-L): 119 ml LAESV Index (A-L): 58.41 ml/m Ao Diam: 3.7 cm (2.0 - 3.7) AV Cusp: 2.4 cm (1.5 - 2.6) EPSS: 0.5 cm MV E Joshua: 1.29 m/s MV DecT: 231 ms MV Dec [place]: 5.6 m/s MV A Joshua: 1.07 m/s MV E/A Ratio: 1.21 MV PHT: 67 ms MV Vmax: 1.63 m/s MV Vmean: 0.88 m/s MV maxP.63 mmHg MV meanP.70 mmHg MV VTI: 33.7 cm AV Vmax: 1.58 m/s AV maxP.98 mmHg TR Vmax: 2.46 m/s TR maxP.15 mmHg RAP: 5.00 mmHg RVSP: 29.15 mmHg MV EF SLOPE: 46.88 mm/s (70 - 150) MV EXCURSION: 21.02 mm (> 18.000) FINDINGS -------- Sinus rhythm. This was a technically good study. The left ventricular size is normal. There is moderate concentric left ventricular hypertrophy. O verall left ventricular systolic function is normal with, an EF between 60 - 65 %. The right ventricle is mildly enlarged. LA is severely dilated >40 ml/m2 The right atrium is normal in size. Interatrial and interventricular septum intact. Trace to mild aortic regurgitation. Moderate mitral regurgitation is present , predominately an anteriorly directed jet. Mild prolapse of the posterior mitral valve leaflet. Mild tricuspid regurgitation present. Right ventricular systolic pressure is normal at < 35 mmHg. Trace/mild (physiologic) pulmonic regurgitation. PROLAPSING LEAFLET SEGMENTS OF POST MITRAL VALVE The aortic root size is normal. Normal inferior vena cava with normal inspiratory collapse consistent with estimated right atrial pre ssure of 5 mmHg. There is no pericardial effusion. CONCLUSIONS -------- 1. The left ventricular size is normal. 2. There is moderate concentric left ventricular hypertrophy. 3. Overall left ventricular systolic function is normal with, an EF between 60 - 65 %. 4. The right ventricle is mildly enlarged. 5. LA is severely dilated >40 ml/m2 6. Trace to mild aortic regurgitation. 7. Moderate mitral regurgitation is present. 8. , predominately an anteriorly directed jet. 9. Mild prolapse of the posterior mitral valve leaflet. 10. Mild tricuspid regurgitation present. 11. Trace/mild (physiologic) pulmonic regurgitation. 12. Can not exclude vegetation of MV 13. There is no pericardial effusion. HEARING CONSULTANT: Maya Dumont RDCS
[2021-06-10 15:07] LABS: Reticulocyte % 1.46 % (0.10-1.80)
--- NOTE | 2021-06-10 17:20 | P.CNNES ---
History of Present Illness Consult date: 06/10/21 Requesting physician: Otoniel Deluca Reason for Consult: Generalized weakness History of Present Illness: Patient is a 60-year-old male came to the hospital yesterday at 11:49 AM for evaluation of exercise intolerance going on for last 1 year, progressively getting worse. 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 It is very strenuous work. However in the last 1 year his endurance has been going downhill. Over the last 1 year, he was able to work only for 4 hours, then 3 hours, then 2, then 1 hour, now cannot even work for half an hour. Patient states that he gets very tired after working. However about a day later, he develops "chills" and feels much more exhausted. Patient denies any stroke symptoms like slurred speech facial droop problem with the vision, numbness tingling focal weakness. No family history of any muscular dystrophy. Patient at one point was diagnosed with severe mitral regurgitation on DAPHNE in 01/04/2019. Patient has not undergone any surgical treatment for the MR. With his worsening symptoms, he came to the hospital. Cardiology has seen the patient. 2-D echo was performed as mentioned below. Neurology was consulted for evaluation of possible neurologic causes of decreased endurance. Vital signs on arrival blood pressure 109/70, pulse rate 90, temperature 97.4. Orthostatics were checked and supine blood pressure 100/63, sitting 114/73 and standing 118/74, negative. Chest x-ray normal. EKG normal sinus rhythm. Computed tomography scan of the head showed no acute process. CT of abdomen and pelvis showed mild prostate enlargement. No evidence of renal stones or obstruction. Mild subsegmental atelectasis at the lung bases. No suspicious pulmonary mass. Blood test shows WBC 16.4 hemoglobin 11.4, platelets 348. PT/PTT normal. Sodium 136 potassium 4.0, BUN 27, creatinine 1.39, which is now normalized. Hepatic panel normal, troponin negative. TSH normal. UA negative. Urine drug screen positive for opiates. Trevino virus PCR negative. 2-D echo revealed normal left-ventricular size. Moderate concentric LVH, EF is between 60-65%. Right ventricle is mildly enlarged. Left atrium was severely dilated. Trace to mild ER. Moderate MR. Predominantly and anteriorly directed jet. Cannot exclude vegetation of mitral valve. Patient denies hypertension at this time. He used to have it before but now is resolved. Denies diabetes. Denies tobacco alcohol or any marijuana or any drug use. Review of Systems As above in detail. All other review of systems unremarkable. Denies any back pain and neck pain, no numbness tingling focal weakness. No slurred speech facial droop. No abdominal pain nausea vomiting diarrhea. Patient does get chills, but no fever. Past Medical History Past Medical History: Hypertension Additional Past Medical History / Comment(s): Heart murmur, pfizer covid vaccine. History of Any Multi-Drug Resistant Organisms: None Reported Additional Past Surgical History / Comment(s): Carpal tunnel release right wrist. Past Anesthesia/Blood Transfusion Reactions: Motion Sickness Additional Past Anesthesia/Blood Transfusion Reaction / Comment(s): Has never had general anesthesia. Past Psychological History: No Psychological Hx Reported Smoking Status: Never smoker Past Alcohol Use History: Occasional Past Drug Use History: None Reported - Past Family History Father Family Medical History: Cancer Additional Family Medical History / Comment(s): Lung cancer. Medications and Allergies Home Medications Medication Instructions Recorded Confirmed Type lisinopriL [Zestril] 30 mg PO HS 06/09/21 06/09/21 History Allergies Allergy/AdvReac Type Severity Reaction Status Date / Time No Known Allergies Allergy Verified 06/09/21 12:37 Physical Examination - Vital Signs Vital Signs: Vital Signs Temp Pulse Pulse Pulse Resp BP BP 06/10/21 08:00 84 77 16 06/10/21 07:50 97.6 F 77 16 06/10/21 01:57 97.4 F L 80 15 114/73 06/09/21 19:05 97.5 F L 84 17 06/09/21 18:07 88 16 06/09/21 17:31 98.2 F 88 16 06/09/21 16:23 78 18 104/65 06/09/21 15:05 97.6 F 75 18 104/66 06/09/21 12:50 84 18 105/68 BP BP BP Pulse Ox 06/10/21 08:00 06/10/21 07:50 103/65 97 06/10/21 01:57 118/74 100/63 97 06/09/21 19:05 109/68 98 06/09/21 18:07 06/09/21 17:31 125/76 100 06/09/21 16:23 99 06/09/21 15:05 99 06/09/21 12:50 99 Intake and Output 06/09/21 06/10/21 06/10/21 22:59 06:59 14:59 Intake Total 350 Balance 350 Intake: Intake, IV Titration 150 Amount Sodium Chloride 0.9% 1, 150 000 ml @ 75 mls/hr IV . [id number] ONE Rx#:[id number] Oral 200 Other: # Voids 1 2 Weight 87.543 kg Patient is a late middle aged male, in no acute distress. Patient is alert awake oriented to time place and person. Speech and language functions are normal. Attention, concentration and fund of knowledge is adequate. On cranial examination, pupils are round and reacting to light, visual vargas are full on confrontation, extraocular muscles are intact with no nystagmus. Face is symmetric, tongue protrudes to the midline. Palatal elevation and sensation normal, hearing and shoulder shrug normal, facial sensation normal. Shoulder shrug normal. On muscle strength testing, there is no pronator drift and the strength is nery l in arms and legs distally and proximally. Deep tendon reflexes are 1+ to 2+ symmetric, and plantars downgoing. Sensory to touch is equal with no neglect. Cerebellar function showed no ataxia for [id number]-ou-edoi testing. No dysdiadochokinesia. Tone and bulk of muscles normal. Gait normal. On general examination, there is no carotid bruit. Patient has definite murmur heard, S1-S2 audible. Abdomen is soft nontender. Chest is clear. Peripheral pulses are present. No edema. Results - Laboratory Findings CBC and BMP: 06/10/21 06:40 06/10/21 06:40 Abnormal Lab Findings: Abnormal Labs 06/09/21 06/09/21 06/09/21 12:39 12:39 12:39 WBC 16.4 H RBC 3.88 L Hgb 11.4 L Hct 32.5 L MPV Neutrophils # 13.8 H ESR Sodium 136 L BUN 27 H Creatinine 1.39 H BUN/Creatinine Ratio Glucose 142 H Calcium C-Reactive Protein Albumin 3.3 L Urine Protein Urine Blood Urine WBC Urine Bacteria Hyaline Casts Urine Mucus Urine Opiates Screen Detected H 06/09/21 06/09/21 06/09/21 12:39 20:30 20:30 WBC RBC Hgb Hct MPV Neutrophils # ESR 70 H Sodium BUN Creatinine BUN/Creatinine Ratio Glucose Calcium C-Reactive Protein 8.5 H Albumin Urine Protein 1+ H Urine Blood Small H Urine WBC 7 H Urine Bacteria Occasional H Hyaline Casts 160 H Urine Mucus Few H Urine Opiates Screen 06/10/21 06/10/21 06:40 06:40 WBC RBC 3.24 L Hgb 9.4 L Hct 28.1 L MPV 9.3 L Neutrophils # ESR Sodium BUN Creatinine BUN/Creatinine Ratio 22.86 H Glucose Calcium 8.1 L C-Reactive Protein Albumin Urine Protein Urine Blood Urine WBC Urine Bacteria Hyaline Casts Urine Mucus Urine Opiates Screen Assessment and Plan Assessment: * Decreased endurance, likely due to cardiac reasons. Patient has no neurological symptoms. Neurological examination is normal. 2-D echo revealed moderate MR, with possibility of vegetations. Plan: * Patient's neurological examination is normal. He has no neurological symptoms, therefore probably not a primary neurological condition. * 2-D echo revealed normal left-ventricular size. Moderate concentric LVH, EF is between 60-65%. Right ventricle is mildly enlarged. Left atrium was severely dilated. Trace to mild ER. Moderate MR. Predominantly and anteriorly directed jet. Cannot exclude vegetation of mitral valve. * Patient undergoing infectious disease consultation. * Suggest transesophageal echocardiogram for further evaluation of MR, rule out vegetations. * I will check B12, folate, MMA. TSH is normal * No other neurological workup indicated.
--- NOTE | 2021-06-10 20:21 | PN ---
PROGRESS NOTE DATE OF SERVICE: 06/10/2021 INTERVAL HISTORY: This 60-year-old gentleman, admitted with tiredness, weakness, has got significant fever also. The patient has got moderate mitral regurgitation. The CT scan of the chest, abdomen and pelvis did not show any acute abnormality. A 2D echo with Doppler showed ejection fraction 60-65 percent and LA was severely dilated and moderate mitral regurgitation was present, predominantly and anteriorly, . Mild prolapse of the posterior mitral valve leaflet was noted. Mild tricuspid regurgitation was also noted. Cannot exclude vegetation of the mitral valve. Aortic root is normal. The cultures are negative so far. White count is normalized today at 7.4. ESR and CRP are elevated. PAST MEDICAL HISTORY: Reviewed. REVIEW OF SYSTEMS: CARDIOVASCULAR: As mentioned earlier. : ntd CURRENT MEDICATIONS: Reviewed include Willard 5 mg, Xanax, Cepacol, folic acid, Robitussin, heparin, multivitamins, vitamin B1. PHYSICAL EXAM: Patient is alert, oriented, pulse 91, blood pressure 108/60, respirations 16, temperature 98.2, pulse ox 98% on room air. HEENT: Conjunctivae normal. Oral mucosa moist. NECK: No jugular venous distention. RESPIRATORY: Breath sounds diminished at the bases. A few scattered rhonchi, no crackles. HEART: S1 and S2, muffled. ABDOMEN: Soft, no tenderness. No masses palpable. EXTREMITIES: No edema, no swelling. NERVOUS: No focal deficits. LAB STUDIES: Hemoglobin 9.2. Other labs are noted. ASSESSMENT: 1. Generalized weakness and tiredness with possible acute renal failure. 2. Rule out infective endocarditis. 3. Elevated ESR and CRP. 4. Severe mitral regurgitation. 5. Moderate mitral regurgitation. 6. Mild subsegmental atelectasis of the lungs in the CT scan. 7. Pansystolic murmur. 8. Increased WBC, rule out sepsis. 9. Anemia, normocytic. 10.Rule out urinary tract infection. 11.Hypertension. 12.history of gastroesophageal reflux disease. 13.History of carpal tunnel syndrome. 14.History of motion sickness. 15.History of recent weight loss. 16.FULL CODE. RECOMMENDATIONS AND DISCUSSION: Recommend to continue current medications, management and treatment. Otherwise, closely follow with Infectious Disease. Repeat labs. We will also check for serum cortisol and cortisol also. Otherwise, the chest, abdomen, pelvis CT scan, which was reviewed personally by me, showed mild subsegmental atelectasis of the lung bases. Mild prostate enlargement was also noted. Prognosis guarded. Discussed with family at length. Further recommendations to follow. MARLEY / GÉNESISN: [id number] / MTDD
[2021-06-10 21:35] LABS: Folate, Serum 8.7 ng/mL
--- NOTE | 2021-06-11 07:03 | CONS ---
CONSULTATION DATE OF SERVICE: 06/10/2021 REASON FOR CONSULTATION: An abnormal echo with a question of endocarditis. HISTORY OF PRESENT ILLNESS: The patient is a 60-year-old male presenting to the ER for complaint of being weak, no energy and the patient has been complaining of rigors, chills and sweats that has been going off and on for a while. However, his symptoms have been getting worse. On Monday that is when he presented to hospital, the day after. Patient also complaining of some gastric upset and decreased oral intake but denies having any vomiting. No diarrhea or constipation. No clear cut history of any fever. The patient did have some poor dental hygiene, however, did not have any dental workup done or any other invasive procedure. The patient does not have currently any open wound or any cellulitis and no joint swelling. With these symptoms, the patient has been evaluated by the ER physician. On arrival to the ER, the patient was afebrile and no fever has been recorded. Subsequently the patient did have a white count of 16.4 on admission that has subsequently normalized to 7.74. The patient has not received any antibiotics during this admission. The patient did have a sedimentation rate of 70, CRP 8.5. Urine has been negative. Urine drug screen was positive for opiates. The patient did have extensive workup in the ER. Chest x-ray was reported negative for any acute pulmonary process. The patient did have a CT of the chest, abdomen and pelvis with mild prostate enlargement, no evidence of any stone or obstruction, mild subsegmental atelectasis and no suspicious pulmonary mass. The patient did have echocardiogram completed which was reported cannot rule out vegetation of the mitral wall. This has prompted this infectious disease consultation. The patient did have blood cultures drawn which are currently pending. REVIEW OF SYSTEMS: Positive points have been mentioned in HPI. Rest of systems are negative. MEDICAL HISTORY: Hypertension, history of heart murmur, carpal tunnel. PAST SURGICAL HISTORY: Carpal tunnel release right wrist. SOCIAL HISTORY: No history of smoking, drinking or drug use. FAMILY HISTORY: Father with history of lung cancer. ALLERGIES: No known drug allergies. MEDICATIONS: The patient is currently on [place], Xanax, Cepacol lozenges, folic acid, , heparin subcu, Theragran, vitamin B1. PHYSICAL EXAMINATION: VITAL SIGNS: Blood pressure 110/64, pulse of 90, temperature 98.4. He is 96% on room air. GENERAL: The patient is a middle-aged male lying in bed in no distress. No tachypnea or accessory muscles of respiration use. HEENT: Examination shows no pallor or scleral icterus. Oral mucous membrane is dry. NECK: Trachea central, no thyromegaly. LUNGS: Unlabored breathing, clear to auscultation anteriorly. No wheeze or crackle. HEART: S1-S2, regular rate and rhythm. ABDOMEN: Soft, no tenderness. No guarding or rigidity. EXTREMITIES: No edema of the feet. SKIN: No rash or mass palpable. NEUROLOGICAL: Patient is awake, alert, oriented times three. Mood and affect normal. LABS: Hemoglobin 9.9, white count 7.7, no left shift. Did have white count 16 before admission. BUN of 16, creatinine 0.7. Did have elevated BUN and creatinine on admission. Liver enzymes are normal. Sedimentation rate and CRP are elevated. Urine was negative. Urine drug screen positive for opiates. DIAGNOSTIC IMPRESSION: Patient presented to the hospital with weakness which is likely multifactorial. The patient did have abnormal echo. The patient did not have any fever, did have a loud murmur, however, he did have a history of mitral regurg. The patient having underlying endocarditis less likely but not entirely excluded. PLAN: 1. We will obtain a DAPHNE to better define the abnormality seen on the surface echocardiogram. 2. Wound repeat blood cultures, CRP and sedimentation rate. 3. We will follow the clinical condition and culture to further adjust medication if needed. Thank you for this consultation. Will follow this patient along with you. MMODL / IJN: [id number] /
[2021-06-11 08:45] VITALS: BP 115/72; PULSE 88; TEMP 98.1
[2021-06-11] MEDS: MULTIVITAMINS, THERA 1 EACH TAB PO SCH (09:50)
[2021-06-11] MEDS: FOLIC ACID 1 MG TAB PO SCH (09:50)
[2021-06-11] MEDS: THIAMINE 100 MG TAB PO SCH (09:50)
[2021-06-11] MEDS: HEPARIN SODIUM,PORCINE/PF 5,000 UNIT/0.5 ML SYRINGE SQ SCH (09:50)
[2021-06-11] MEDS ORDERED: VANCOMYCIN IV PER PHARMACY 1 EACH MISC MISCELLANE PRN (09:57)
--- NOTE | 2021-06-11 10:09 | P.PN ---
<Gerda Zhang Pablo - Last Filed: 06/11/21 10:00> Subjective HISTORY OF PRESENTING ILLNESS This is a pleasant 60-year-old male past medical history significant for mitral regurgitation, mitral valve prolapse and hypertension. He follows in the office with Dr. Raya in [facility]. We have been asked to see in consultation for mitral regurgitation. He presented to the hospital with symptoms of fever, chills, weakness and fatigue. He states for the previous one year he has noticed increased fatigue. His fatigue occurs hours after any activities. He states he can do something minor around the house and throughout the activity he feels fine but then a couple of hours later he is completely exhausted and can no longer do anything else for the rest of the day. He denies any shortness of breath, dizziness or palpitations. He has seen his primary photo lab technician regarding this and she has advised a secondary medical workup. He does have valvular heart disease with mitral valve prolapse and moderate to severe mitral valve regurgitation. This is followed closely by his primary photo lab technician and there is no plans for surgical repair at this time. EKG on arrival reveals sinus mechanism with no acute ST or T wave abnormalities noted. Chest x-ray is negative for an acute cardiopulmonary process. Laboratory data reviewed, WBC on admission 16.4 repeat today 7.7, hemoglobin on admission 11.4 with a baseline in January 2015 with a repeat today of 9.4, platelets 311, ESR 70, sodium 137, potassium 4.5, creatinine on admission 1. 3 repeat today 0.7, magnesium 2.0, troponin negative 1, TSH 1.59 and CRP 8.5. Prior daily cardiac medications include lisinopril 30 mg daily. 06/11/2021 Pt seen and examined sitting up in bed in no acute distress. He denies chest pain, shortness of breath, dizziness or palpitations. Blood cultures are positive for gram positive cocci. ID is requesting a DAPHNE. Blood pressure 115/72 heart rate 88 afebrile maintaining oxygen saturation on room air. PHYSICAL EXAMINATION CONSTITUTIONAL: No apparent distress. HEENT: Head is normocephalic. Pupils are equal, round. Sclerae anicteric. Mucous membranes of the mouth are moist. No JVD. No carotid bruit. CHEST EXAMINATION: Lungs are clear to auscultation. No chest wall tenderness is noted on palpation or with deep breathing. HEART EXAMINATION: Regular rate and rhythm. S1, S2 heard. Systolic ejection murmur at the apex, no gallops or rub. EXTREMITIES: 2+ peripheral pulses, no lower extremity edema and no calf tenderness. ASSESSMENT Generalized weakness Leukocytosis Acute kidney injury Mitral regurgitation, moderate Mitral valve prolapse PLAN Given positive blood cultures, infectious disease has requested a DAPHNE however the patient wishes to be treated with medical management rather than having an invasive procedure. Discussed in detail with the patient the need for the test however, he is quite adament that he would prefer to be treated with antibiotics. Recommend ID management of antibiotics and outpatient follow-up with his photo lab technician. No plans for DAPHNE at this time. Nurse Practitioner note has been reviewed, I agree with a documented findings and plan of care. Patient was seen and examined. Objective - Vital Signs Vital signs: Vital Signs Temp 98.1 F 06/11/21 08:00 Pulse 88 06/11/21 08:00 Resp 16 06/11/21 08:00 BP 115/72 06/11/21 08:00 Pulse Ox 96 06/11/21 08:00 Intake & Output 06/10/21 06/11/21 06/11/21 18:59 06:59 18:59 Intake Total 1000 Balance 1000 Intake: Intake, IV Titration 600 Amount Sodium Chloride 0.9% 1, 600 000 ml @ 75 mls/hr IV . [id number] ONE Rx#:[id number] Oral 400 Other: # Voids 3 2 - Labs CBC & Chem 7: 06/10/21 06:40 06/10/21 06:40 Labs: Abnormal Lab Results - Last 24 Hours (Table) 06/10/21 06/10/21 Range/Units 06:40 06:40 BUN/Creatinine Ratio 22.86 H (12.00-20.00) Ratio Calcium 8.1 L (8.7-10.3) mg/dL Vitamin B12 1035.0 H (200.0-944.0) pg/mL Microbiology - Last 24 Hours (Table) 06/09/21 20:30 Blood Culture - Final Blood 06/09/21 20:30 Blood Culture Gram Stain - Preliminary Blood 06/09/21 Unknown Urine Culture - Final Urine,Voided <Herman Roy - Last Filed: 06/11/21 11:01> Subjective Dr. Roy's update I reviewed his 2-D echo He has posterior mitral valve prolapse I reviewed the prolapsing segments in slow motion/frame by frame The images are adequate I don't see any clear-cut evidence for a vegetation on this valve on transthoracic echo He has had mitral prolapse with moderate severe mitral regurgitation for many years He has 2 blood cultures which show gram-positive cocci He has had 1 episode of fever upon admission along with an elevated white count His reticulocyte count is normal, haptoglobin pending Objective - Vital Signs Vital signs: Vital Signs Temp 98.1 F 06/11/21 08:00 Pulse 88 06/11/21 08:00 Resp 16 06/11/21 08:00 BP 115/72 06/11/21 08:00 Pulse Ox 96 06/11/21 08:00 Intake & Output 06/10/21 06/11/21 06/11/21 18:59 06:59 18:59 Intake Total 1000 Balance 1000 Intake: Intake, IV Titration 600 Amount Sodium Chloride 0.9% 1, 600 000 ml @ 75 mls/hr IV . [id number] ONE Rx#:[id number] Oral 400 Other: # Voids 3 2 - Labs CBC & Chem 7: 06/10/21 06:40 06/10/21 06:40 Labs: Abnormal Lab Results - Last 24 Hours (Table) 06/10/21 Range/Units 06:40 Vitamin B12 1035.0 H (200.0-944.0) pg/mL Microbiology - Last 24 Hours (Table) 06/09/21 20:30 Blood Culture - Final Blood 06/09/21 20:30 Blood Culture Gram Stain - Preliminary Blood 06/09/21 Unknown Urine Culture - Final Urine,Voided
[2021-06-11] MEDS ORDERED: VANCOMYCIN 1,500 MG in SODIUM CHLORIDE 0.9% 250 ML IVPB ONE (11:00)
[2021-06-11 11:27] LABS: Basophils # (A) 0.04 X 10*3/uL (0.00-0.10); Basophils % (A) 0.4 %; Eosinophils # (A) 0.09 X 10*3/uL (0.04-0.35); Eosinophils % (A) 0.9 %; HCT 32.4 % (39.6-50.0); HGB 10.5 g/dL (13.0-17.0); Lymphocytes # (A) 1.26 X 10*3/uL (0.90-5.00); MCH 28.8 pg (27.0-32.0); MCHC 32.4 g/dL (32.0-37.0); MCV 88.8 fL (80.0-97.0); Mean Platelet Volume 10.1 fL (9.5-12.2); Monocytes # (A) 0.44 X 10*3/uL (0.20-1.00); Monocytes % (A) 4.5 %; Neutrophils # (A) 7.83 X 10*3/uL (1.80-7.70); Neutrophils % (A) 80.8 %; Platelet Count 331 X 10*3/uL (140-440); RBC 3.65 X 10*6/uL (4.40-5.60)
[2021-06-11 14:53] LABS: African American GFR (CKD) 124.9 (60.0-200.0); BUN/Creat Ratio 21.67 Ratio (12.00-20.00); Calcium 8.7 mg/dL (8.7-10.3); Non-African American GFR(CKD) 107.8 (60.0-200.0); Potassium 4.6 mmol/L (3.5-5.5)
--- NOTE | 2021-06-11 16:06 | P.PN ---
Progress Note - Text Progress Note Date: 06/11/21 REASON FOR FOLLOWUP: Bacteremia and endocarditis INTERVAL HISTORY: Patient is a 60-year-old male admitted to the hospital with chills weakness, patient did have abnormal echo concerning for mitral valve endocarditis. The patient blood culture reported positive this morning with gram-positive cocci On today's evaluation that is 06/11/2021, the patient is afebrile the patient seemed very upset as he has been seen by cardiology earlier and explained TEEto him, patient has been very angry saying nobody is shoveling anything through my throat, the patient denies having any chest pain shortness of breath or cough no nausea no vomiting no abdominal pain and no diarrhea PHYSICAL EXAMINATION: Blood pressure 150/72 with a pulse of 75, temperature 98.1, pt is 97% on room air. General description is a middle-age male, lying in bed in no distress. RESPIRATORY SYSTEM: Unlabored breathing, clear to auscultation anteriorly. HEART: S1, S2. Regular rate and rhythm. Systolic murmur ABDOMEN: Soft, no tenderness. EXTREMITIES: No edema of the feet. LABS: Blood culture positive with gram-positive cocci 2 out of 2 DIAGNOSTIC IMPRESSION AND PLAN: Patient in the hospital with weakness chills in this patient who did have elevated white count admission he did have abnormal 2- D echocardiogram now with evidence of positive blood culture likely secondary to infective endocarditis, vancomycin has been added blood cultures have been repeated document clearance of his bacteremia I will detailed discussion with the patient importance of DAPHNE as that will determine the integrity of the more and to make sure that evidence of any valvular abscess, the patient seemed very upset and does me that his insurance will not pay for any testing if 100% sure and is asking me to pay for the DAPHNE, patient seemed to be unrealistic in his conversation, tried to explain logic behind the test however the patient threatened that he would pull up his IV and leave, patient will be continued on vancomycin cardiology and primary team will talk to him further about the importance of this testing
[2021-06-11 16:37] LABS: Erythrocyte Sedimentation Rate 63 mm/Hr (0-20)
[2021-06-11] MEDS ORDERED: VANCOMYCIN 1,500 MG in SODIUM CHLORIDE 0.9% 250 ML IVPB SCH (18:00)
--- NOTE | 2021-06-11 21:44 | DS ---
DISCHARGE SUMMARY FINAL DIAGNOSES: 1. Generalized weakness and tiredness with possible subacute infective endocarditis. 2. Positive blood cultures. 3. Possible acute renal failure. 4. Elevated ESR and CRP. 5. Moderate mitral regurgitation. 6. Mild subsegmental atelectasis in the CT scan. 7. Pansystolic murmur. 8. Increased WBC, rule out sepsis. 9. Anemia, normocytic. 10.Possible urinary tract infection present on admission. 11.Hypertension. 12.History of gastroesophageal reflux disease. 13.History of carpal tunnel syndrome. 14.History of motion sickness. 15.History of recent weight loss. 16.FULL CODE. DISCHARGE DISPOSITION: The patient left the hospital AGAINST MEDICAL ADVICE. HISTORY OF PRESENT ILLNESS: This 60-year-old gentleman with a past medical history of multiple medical problems being followed by Dr. Usman Baker in the outpatient setting was admitted with multiple symptomatology as mentioned earlier. Infective endocarditis was suspected. The blood culture positive. Dr. Burks saw the patient and empiric antibiotics initiated. Cardiology also saw the patient, but however the patient is not willing for DAPHNE here at this time. The patient was seeing his own environmental field team member in [place]. Patient would like to attend [place] environmental field team member and left the hospital AGAINST MEDICAL ADVICE. The prognosis was extremely guarded throughout the hospitalization and please refer to the multiple progress notes and consultation notes and staff notes for further details. MMODL / IJN: [id number] /
== END 2021-06-11 13:32 | disposition left against medical advice (07) | DRG 871 ==
LOC: EC 11:49 → 4SSUR 14:00
PROVIDERS: ADMIT Hospitalist; ATTEND Hospitalist
DX: A41.9 Sepsis, unspecified organism (principal); I33.0 Acute and subacute infective endocarditis; K72.00 Acute and subacute hepatic failure without coma; N17.9 Acute kidney failure, unspecified; J98.11 Atelectasis; R65.20 Severe sepsis without septic shock; D64.9 Anemia, unspecified; I10 Essential (primary) hypertension; I34.0 Nonrheumatic mitral (valve) insufficiency; I34.1 Nonrheumatic mitral (valve) prolapse; N40.0 Benign prostatic hyperplasia without lower urinary tract symptoms; Z80.1 Family history of malignant neoplasm of trachea, bronchus and lung; R63.4 Abnormal weight loss; Z68.28 Body mass index [BMI] 28.0-28.9, adult; Z20.822 Contact with and (suspected) exposure to COVID-19; K21.9 Gastro-esophageal reflux disease without esophagitis
CPT/HCPCS: 36415; 70450; 71046; 71260; 74177; 80048; 80053; 80306; 81001; 82140; 82533; 82607; 82746; 83010; 83519; 83605; 83615; 83690; 83735; 83921; 84145; 84207; 84443; 84484; 85025; 85045; 85610; 85652; 85730; 86140; 86780; 87040; 87086; 87635; 93005; 93306; 96360; 99285

== ENCOUNTER 2021-07-08 01:38 | Observation (INO) | payer BC ==
--- NOTE | 2021-07-08 01:42 | ED ---
Weakness HPI - General Stated complaint: Chest Pain Time Seen by Provider: 07/08/21 01:40 Source: RN notes reviewed, old records reviewed Limitations: no limitations - History of Present Illness Initial comments: This is a 58-year-old male DF for evaluation of chest pain. Patient presents for evaluation of his feeling of heaviness on his chest and anterior abdomen. No shortness of breath. Patient is recent Medical history which is positive for pericarditis the believe it's infected and he is on IV antibiotics. Patient has a significant history of mitral valve prolapse. Patient does not feel feverish currently but he is having chest pain chest pain MD Complaint: lack of energy (With chest pain) -: hour(s) Location: generalized, other (Chest) Severity: moderate Severity scale (1-10): 5 Quality: tingling, crushing Improves with: none Worsens with: none Context: recent illness Associated Symptoms: shortness of breath - Related Data Home Medications Medication Instructions Recorded Confirmed lisinopriL [Zestril] 30 mg PO HS 06/09/21 06/09/21 Allergies Allergy/AdvReac Type Severity Reaction Status Date / Time No Known Allergies Allergy Verified 07/08/21 03:02 Review of Systems ROS Statement: Those systems with pertinent positive or pertinent negative responses have been documented in the HPI. ROS Other: All systems not noted in ROS Statement are negative. Past Medical History Past Medical History: Hypertension Additional Past Medical History / Comment(s): Heart murmur, pfizer covid vaccine. History of Any Multi-Drug Resistant Organisms: None Reported Additional Past Surgical History / Comment(s): Carpal tunnel release right wrist. Past Anesthesia/Blood Transfusion Reactions: Motion Sickness Additional Past Anesthesia/Blood Transfusion Reaction / Comment(s): Has never had general anesthesia. Past Psychological History: No Psychological Hx Reported Smoking Status: Never smoker Past Alcohol Use History: Occasional Past Drug Use History: None Reported - Past Family History Father Family Medical History: Cancer Additional Family Medical History / Comment(s): Lung cancer. General Exam General appearance: alert, in no apparent distress Head exam: Present: atraumatic, normocephalic, normal inspection Eye exam: Present: normal appearance, PERRL, EOMI. Absent: scleral icterus, conjunctival injection, periorbital swelling ENT exam: Present: normal exam, mucous membranes moist Neck exam: Present: normal inspection. Absent: tenderness, meningismus, lymphadenopathy Respiratory exam: Present: normal lung sounds bilaterally. Absent: respiratory distress, wheezes, rales, rhonchi, stridor Cardiovascular Exam: Present: regular rate, normal rhythm, normal heart sounds, other (Significant murmur). Absent: diastolic murmur, rubs, gallop, clicks GI/Abdominal exam: Present: soft, normal bowel sounds. Absent: distended, t enderness, guarding, rebound, rigid Extremities exam: Present: normal inspection, full ROM, normal capillary refill. Absent: tenderness, pedal edema, joint swelling, calf tenderness Back exam: Present: normal inspection Neurological exam: Present: alert, oriented X3, CN II-XII intact Psychiatric exam: Present: normal affect, normal mood Skin exam: Present: warm, dry, intact, normal color. Absent: rash Course Vital Signs 07/08/21 07/08/21 02:30 03:23 Temperature 98.3 F Pulse Rate 85 80 Respiratory 17 16 Rate Blood Pressure 134/79 128/83 O2 Sat by Pulse 96 97 Oximetry - Reevaluation(s) Reevaluation #1: 07/08/21 02:17 Medical records reviewed EKG Findings - EKG Comments: EKG Findings:: EKG is sinus rhythm 89, WV 168 QRS 94 QTC 445 Medical Decision Making - Lab Data Result diagrams: 07/08/21 02:33 07/08/21 02:33 Lab Results 07/08/21 07/08/21 07/08/21 Range/Units 02:33 02:33 02:33 WBC 6.6 (3.8-10.6) k/uL RBC 3.75 L (4.30-5.90) m/uL Hgb 11.3 L (13.0-17.5) gm/dL Hct 33.5 L (39.0-53.0) % MCV 89.3 D (80.0-100.0) fL MCH 30.2 (25.0-35.0) pg MCHC 33.9 (31.0-37.0) g/dL RDW 16.3 H (11.5-15.5) % Plt Count 235 (150-450) k/uL MPV 7.4 Neutrophils % 65 % Lymphocytes % 19 % Monocytes % 7 % Eosinophils % 7 % Basophils % 1 % Neutrophils # 4.3 (1.3-7.7) k/uL Lymphocytes # 1.2 (1.0-4.8) k/uL Monocytes # 0.4 (0-1.0) k/uL Eosinophils # 0.4 (0-0.7) k/uL Basophils # 0.1 (0-0.2) k/uL Anisocytosis Slight PT 10.8 (9.0-12.0) sec INR 1.0 (<1.2) APTT 27.4 (22.0-30.0) sec Sodium 138 (137-145) mmol/L Potassium 3.4 L (3.5-5.1) mmol/L Chloride 106 (98-107) mmol/L Carbon Dioxide 24 (22-30) mmol/L Anion Gap 8 mmol/L BUN 14 (9-20) mg/dL Creatinine 0.67 (0.66-1.25) mg/dL Est GFR (CKD-EPI)AfAm >90 (>60 ml/min/1.73 sqM) Est GFR (CKD-EPI)NonAf >90 (>60 ml/min/1.73 sqM) Glucose 110 H (74-99) mg/dL Calcium 8.8 (8.4-10.2) mg/dL Total Bilirubin 0.4 (0.2-1.3) mg/dL AST 21 (17-59) U/L ALT 12 (4-49) U/L Alkaline Phosphatase 71 (38-126) U/L Troponin I (0.000-0.034) ng/mL Total Protein 5.9 L (6.3-8.2) g/dL Albumin 3.3 L (3.5-5.0) g/dL 07/08/21 Range/Units 02:33 WBC (3.8-10.6) k/uL RBC (4.30-5.90) m/uL Hgb (13.0-17.5) gm/dL Hct (39.0-53.0) % MCV (80.0-100.0) fL MCH (25.0-35.0) pg MCHC (31.0-37.0) g/dL RDW (11.5-15.5) % Plt Count (150-450) k/uL MPV Neutrophils % % Lymphocytes % % Monocytes % % Eosinophils % % Basophils % % Neutrophils # (1.3-7.7) k/uL Lymphocytes # (1.0-4.8) k/uL Monocytes # (0-1.0) k/uL Eosinophils # (0-0.7) k/uL Basophils # (0-0.2) k/uL Anisocytosis PT (9.0-12.0) sec INR (<1.2) APTT (22.0-30.0) sec Sodium (137-145) mmol/L Potassium (3.5-5.1) mmol/L Chloride (98-107) mmol/L Carbon Dioxide (22-30) mmol/L Anion Gap mmol/L BUN (9-20) mg/dL Creatinine (0.66-1.25) mg/dL Est GFR (CKD-EPI)AfAm (>60 ml/min/1.73 sqM) Est GFR (CKD-EPI)NonAf (>60 ml/min/1.73 sqM) Glucose (74-99) mg/dL Calcium (8.4-10.2) mg/dL Total Bilirubin (0.2-1.3) mg/dL AST (17-59) U/L ALT (4-49) U/L Alkaline Phosphatase (38-126) U/L Troponin I <0.012 (0.000-0.034) ng/mL Total Protein (6.3-8.2) g/dL Albumin (3.5-5.0) g/dL Disposition Clinical Impression: Chest pain, Atypical chest pain Disposition: ADMITTED IP TO THIS HOSP Condition: Good Is patient prescribed a controlled substance at d/c from ED?: No Referrals: Usman Baker DO [Primary Care Provider] - 1-2 days
[2021-07-08 02:44] LABS: Anisocytosis Slight; Basophils # (A) 0.1 k/uL (0-0.2); Basophils % (A) 1 %; Eosinophils # (A) 0.4 k/uL (0-0.7); Eosinophils % (A) 7 %; HCT 33.5 % (39.0-53.0); HGB 11.3 gm/dL (13.0-17.5); Lymphocytes # (A) 1.2 k/uL (1.0-4.8); Lymphocytes % (A) 19 %; MCH 30.2 pg (25.0-35.0); MCHC 33.9 g/dL (31.0-37.0); Mean Platelet Volume 7.4; Monocytes # (A) 0.4 k/uL (0-1.0); Monocytes % (A) 7 %; Neutrophils # (A) 4.3 k/uL (1.3-7.7); Neutrophils % (A) 65 %; Platelet Count 235 k/uL (150-450); RBC 3.75 m/uL (4.30-5.90); RDW 16.3 % (11.5-15.5); WBC 6.6 k/uL (3.8-10.6)
[2021-07-08 02:49] LABS: Partial Thromboplastin Time 27.4 sec (22.0-30.0); Prothrombin Time 10.8 sec (9.0-12.0)
[2021-07-08 02:55] LABS: ALT 12 U/L (4-49); AST 21 U/L (17-59); African American GFR (CKD) >90 (>60 ml/min/1.73 sqM); Albumin 3.3 g/dL (3.5-5.0); Alkaline Phosphatase 71 U/L (38-126); Anion Gap 8 mmol/L; Blood Urea Nitrogen 14 mg/dL (9-20); Calcium 8.8 mg/dL (8.4-10.2); Carbon Dioxide 24 mmol/L (22-30); Chloride 106 mmol/L (98-107); Glucose 110 mg/dL (74-99); Non-African American GFR(CKD) >90 (>60 ml/min/1.73 sqM); Potassium 3.4 mmol/L (3.5-5.1); Sodium 138 mmol/L (137-145); Total Bilirubin 0.4 mg/dL (0.2-1.3); Total Protein 5.9 g/dL (6.3-8.2)
[2021-07-08 02:59] LABS: MCV 89.3 fL (80.0-100.0)
--- NOTE | 2021-07-08 03:14 | XR ---
EXAMINATION TYPE: XR chest 2V DATE OF EXAM: 07/08/2021 COMPARISON: 06/09/2021 HISTORY: Chest pain TECHNIQUE: FINDINGS: Heart is normal. There is left side central venous catheter with tip in the superior vena c david. There is some mild linear interstitial density in the lower lung vargas. There is no pleural eff usion. There is no heart failure. There are no hilar masses. Mediastinum is normal. IMPRESSION: Minimal subsegmental atelectasis increased compared to old exam. Normal heart.
[2021-07-08 09:11] VITALS: RESP 20
--- NOTE | 2021-07-08 10:22 | P.CRDCN ---
History of Present Illness Consult date: 07/08/21 Requesting physician: Fabricio Katz Reason for Consult (text): CP Chief complaint: chest pressure, overall not feeling well History of present illness: This is a pleasant 60-year-old gentleman who has been following with Dr. Raya. History of mitral regurgitation and mitral valve prolapse. Most recently admitted to the hospital here at which time he signed himself out AMA and went to [facility] where he spent 10 days. While here she initially presented with fatigue and chills and not feeling well with evidence of leukocytosis and acute kidney injury. At that time he underwent echocardiogram which showed normal LV systolic function with moderate MR, mild MVP and could not exclude vegetation of the mitral valve. He did have positive cultures which showed gram-positive cocci in clusters, Aerococcus species. At that time he did refuse DAPHNE and signed himself out AMA. He later presented to [facility] and per the patient underwent DAPHNE and cardiac catheterization. He said he was noted to have no blockages but is unclear regarding the results of the DAPHNE. He was apparently seen by cardiothoracic surgery but is unsure what the plan is. These records are not available to me. Presented to the hospital this admission with complaints of chest pressure that occurred at rest. He feels it may be somewhat anxiety related but is worried that it is related to his valve issues. EKG on admission this time showed normal sinus rhythm with no evidence of acute ischemia. Vital signs of in stable and he's been afebrile. No evidence of leukocytosis. Cons have been negative 2. Echocardiogram was done this morning as ordered by ER physician and results are pending. Upon examination the patient is resting comfortably in bed. At this time he feels fairly well. He has no complaints of chest discomfort, orthopnea or PND. He does feel that his breathing is somewhat shorter than usual and has been since April but apparently underwent pulmonary function testing which was normal. He complains of regional palpitations. Telemetry has shown one 6 beat run of nonsustained ventricular tachycardia but no other arrhythmias. CUrrent home medications include lisinopril, atorvastatin and aspirin. Past Medical History Past Medical History: Hypertension Additional Past Medical History / Comment(s): Heart murmur, pfizer covid vaccine. History of Any Multi-Drug Resistant Organisms: None Reported Additional Past Surgical History / Comment(s): Carpal tunnel release right wrist. Past Anesthesia/Blood Transfusion Reactions: Motion Sickness Additional Past Anesthesia/Blood Transfusion Reaction / Comment(s): Has never had general anesthesia. Past Psychological History: No Psychological Hx Reported Smoking Status: Never smoker Past Alcohol Use History: Occasional Past Drug Use History: None Reported - Past Family History Father Family Medical History: Cancer Additional Family Medical History / Comment(s): Lung cancer. Medications and Allergies Home Medications Medication Instructions Recorded Confirmed Type lisinopriL [Zestril] 30 mg PO AC-SUPPER 06/09/21 07/08/21 History Aspirin EC [Ecotrin Low Dose] 81 mg PO AC-SUPPER 07/08/21 07/08/21 History Atorvastatin Calcium [Lipitor] 20 mg PO AC-SUPPER 07/08/21 07/08/21 History Allergies Allergy/AdvReac Type Severity Reaction Status Date / Time No Known Allergies Allergy Verified 07/08/21 06:56 Physical Exam Vitals: Vital Signs Temp Pulse Pulse Resp BP BP Pulse Ox 07/08/21 08:00 98.1 F 78 20 130/73 96 07/08/21 06:31 98.3 F 81 16 96 07/08/21 06:23 81 16 07/08/21 03:23 80 16 128/83 97 07/08/21 02:30 98.3 F 85 17 134/79 96 Intake and Output 07/07/21 07/08/21 07/08/21 22:59 06:59 14:59 Other: Voiding Method Toilet Weight 90.718 kg PHYSICAL EXAMINATION: This is a 60-year-old gentleman in no apparent distress at the time of my examination, some anxiety noted. VITAL SIGNS: Blood pressure 128/83, heart rate 81, respirations 16, temp 98.3F. Patient is 96 % on room air. HEENT: Head is atraumatic, normocephalic. Pupils are equal, round. Sclerae anicteric. Conjunctivae are clear. Mucous membranes of the mouth are moist. Neck is supple. There is no elevated jugular venous pressure. No carotid bruit is heard. CHEST EXAMINATION: Clear to auscultation bilaterally. No wheezes rales or rhonchi. Respirations even and nonlabored. HEART EXAMINATION: Heart regular, positive S1 and S2. No S3. No S4. Grade 3/6 holosystolic murmur at the apex with radiation to the axilla. ABDOMEN: Soft, nontender. Bowel sounds are heard. No organomegaly noted. EXTREMITIES: 2+ peripheral pulses with no evidence of peripheral edema and no calf tenderness noted. NEUROLOGIC EXAMINATION: Patient is awake, alert and oriented x3. Results 07/08/21 02:33 07/08/21 02:33 Cardiac Enzymes 07/08/21 07/08/21 07/08/21 Range/Units 02:33 02:33 06:36 AST 21 (17-59) U/L Troponin I <0.012 <0.012 (0.000-0.034) ng/mL Coagulation 07/08/21 Range/Units 02:33 PT 10.8 (9.0-12.0) sec APTT 27.4 (22.0-30.0) sec CBC 07/08/21 Range/Units 02:33 WBC 6.6 (3.8-10.6) k/uL RBC 3.75 L (4.30-5.90) m/uL Hgb 11.3 L (13.0-17.5) gm/dL Hct 33.5 L (39.0-53.0) % Plt Count 235 (150-450) k/uL Comprehensive Metabolic Panel 07/08/21 Range/Units 02:33 Sodium 138 (137-145) mmol/L Potassium 3.4 L (3.5-5.1) mmol/L Chloride 106 (98-107) mmol/L Carbon Dioxide 24 (22-30) mmol/L BUN 14 (9-20) mg/dL Creatinine 0.67 (0.66-1.25) mg/dL Glucose 110 H (74-99) mg/dL Calcium 8.8 (8.4-10.2) mg/dL AST 21 (17-59) U/L ALT 12 (4-49) U/L Alkaline Phosphatase 71 (38-126) U/L Total Protein 5.9 L (6.3-8.2) g/dL Albumin 3.3 L (3.5-5.0) g/dL Current Medications Generic Name Dose Route Start Last Admin Trade Name Freq PRN Reason Stop Dose Admin Atorvastatin Calcium 20 mg 07/08/21 17:30 Atorvastatin 20 Mg Tab PO AC-SUPPER DIANE Non-Formulary Medication 81 mg 07/08/21 17:30 Aspirin Ec PO AC-SUPPER DIANE Non-Formulary Medication 30 mg 07/08/21 17:30 Lisinopril [Zestril] PO AC-SUPPER DIANE Intake and Output 07/07/21 07/08/21 07/08/21 22:59 06:59 14:59 Other: Voiding Method Toilet Weight 90.718 kg 07/08/21 02:33 07/08/21 02:33 EKG Interpretations (text) Sinus rhythm Assessment and Plan Assessment: #1 mitral regurgitation with mitral valve prolapse #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 We will review the echocardiogram that was done as ordered by the ER physician. We'll obtain all records from [facility]. We will continue to follow the patient provide further recommendations accordingly. BUS INFO CONSULTANT note has been reviewed, I agree with a documented findings and plan of care. Patient was seen and examined.
[2021-07-08 10:48] VITALS: BMI 29.5
--- NOTE | 2021-07-08 11:33 | ECHOF ---
Referral Reason:cp MEASUREMENTS -------- HEIGHT: 175.3 cm WEIGHT: 90.7 kg BP: 128/83 RVIDd: 2.5 cm (< 3.3) IVSd: 1.6 cm (0.6 - 1.1) LVIDd: 5.3 cm (3.9 - 5.3) LVPWd: 1.2 cm (0.6 - 1.1) IVSs: 2.1 cm LVIDs: 2.7 cm LVPWs: 1.6 cm LAESV Index (A-L): 59.71 ml/m Ao Diam: 3.8 cm (2.0 - 3.7) AV Cusp: 2.4 cm (1.5 - 2.6) LA Diam: 4.3 cm (2.7 - 3.8) MV EXCURSION: 17.180 mm (> 18.000) MV EF SLOPE: 181 mm/s (70 - 150) EPSS: 0.5 cm MV E Joshua: 1.64 m/s MV DecT: 201 ms MV A Joshua: 0.64 m/s MV E/A Ratio: 2.56 AR PHT: 307 ms RAP: 5.00 mmHg RVSP: 61.50 mmHg FINDINGS -------- This was a technically good study. The left ventricular size is normal. The septum is moderately thickened with the remainder of the wal l thickness is normal. Overall left ventricular systolic function is normal with, an EF between 55 - 60 %. Increased LAP Grade 3 Diastolic Dysfunction. The right ventricle is normal in size. LA is severely dilated >40 ml/m2 The right atrial size is normal. Dropout seen in the interatrial septum The aortic valve is trileaflet and appears structurally normal. There is moderate aortic regurgitat ion. There is severe anteriorly directed mitral regurugitation with what appears to be a flail posterior l eaflet vs less likely vegetation of the posterior valve. May consider DAPHNE if clinically indicated. The tricuspid valve appears structurally normal. Moderate tricuspid regurgitation present. There is moderate pulmonary hypertension. The right ventricular systolic pressure, as measured by Doppler , is 61.50mmHg. Trace/mild (physiologic) pulmonic regurgitation. The aortic root size is normal. Normal inferior vena cava with normal inspiratory collapse consistent with estimated right atrial pre ssure of 5 mmHg. There is no pericardial effusion. CONCLUSIONS -------- 1. The left ventricular size is normal. 2. Overall left ventricular systolic function is normal with, an EF between 55 - 60 %. 3. Increased LAP Grade 3 Diastolic Dysfunction. 4. LA is severely dilated >40 ml/m2 5. Dropout seen in the interatrial septum 6. There is moderate aortic regurgitation. 7. Moderate tricuspid regurgitation present. 8. There is moderate pulmonary hypertension. 9. The right ventricular systolic pressure, as measured by Doppler, is 61.50mmHg. 10. Trace/mild (physiologic) pulmonic regurgitation. 11. There is no pericardial effusion. ENTERTAINMENT USHER: Tara Macias RDCS
[2021-07-08] MEDS ORDERED: POTASSIUM CHLORIDE ER 20 MEQ TAB.ER PO STA (14:05)
--- NOTE | 2021-07-08 14:11 | P.HPIM ---
History of Present Illness Patient is an 60-year-old the male came in with comments of chest pain on the left side of the chest, patient is not a real good historian he says it may be in the abdomen and maybe constipation no associated shortness of breath ligh theadedness diaphoresis. Patient had recent cardiac catheterization at [facility] which did not show any significant coronary artery disease but the the patient does have mitral regurgitation with mitral valve prolapse. Patient the had endocarditis with Aerococcus, and patient is presently receiving Rocephin an outpatient basis. Patient doesn't have any fever chills. Patient just says pain-free patient chest pain is associated with tremors appears to be anxiety episode troponins are negative EKG was done which did not show any significant abnormality Patient was evaluated by cardiology the recommending evaluation of cardio thoracic surgery for mitral regurgitation and mitral valve prolapse, CT surgery evaluated the patient and they're recommending outpatient follow-up. REVIEW OF SYSTEMS: CONSTITUTIONAL: No fever, no malaise, no fatigue. HEENT: No recent visual problems or hearing problems. Denied any sore throat. CARDIOVASCULAR: No orthopnea, PND, no palpitations, no syncope. PULMONARY: No shortness of breath, no cough, no hemoptysis. GASTROINTESTINAL: No diarrhea, no nausea, no vomiting, no abdominal pain. NEUROLOGICAL: No headaches, no weakness, no numbness. HEMATOLOGICAL: Denies any bleeding or petechiae. GENITOURINARY: Denies any burning micturition, frequency, or urgency. MUSCULOSKELETAL/RHEUMATOLOGICAL: Denies any joint pain, swelling, or any muscle pain. ENDOCRINE: Denies any polyuria or polydipsia. The rest of the 14-point review of systems is negative. PHYSICAL EXAMINATION: GENERAL: The patient is alert and oriented x3, not in any acute distress. Well developed, well nourished. HEENT: Pupils are round and equally reacting to light. EOMI. No scleral icterus. No conjunctival pallor. Normocephalic, atraumatic. No pharyngeal erythema. No thyromegaly. CARDIOVASCULAR: S1 and S2 present. No murmurs, rubs, or gallops. PULMONARY: Chest is clear to auscultation, no wheezing or crackles. ABDOMEN: Soft, nontender, nondistended, normoactive bowel sounds. No palpable organomegaly. MUSCULOSKELETAL: No joint swelling or deformity. EXTREMITIES: No cyanosis, clubbing, or pedal edema. NEUROLOGICAL: Gross neurological examination did not reveal any focal deficits. SKIN: No rashes. Assessment and plan -Chest pain: Ruled out acute coronary syndromes patient had a recent cardiac catheterization which was negative for any significant coronary artery disease. Chest pain appears to be secondary to anxiety patient will be discharged on citalopram and as needed the Xanax. -Mitral valve prolapse and mitral regurgitation: Patient will follow with cardiothoracic surgery as an outpatient patient had severe mitral regurgitation the previous DAPHNE cannot exclude a vegetation on the mitral valve. Recent mitral valve endocarditis for which patient is on antibiotics patient is receiving and medics as an outpatient -Hypertension -Hyperlipidemia Patient will be given a dose of Rocephin which she is due today after that patient will be discharged and patient will continue to follow as an outpatient for IV antibiotic therapy. Past Medical History Past Medical History: Hypertension Additional Past Medical History / Comment(s): Heart murmur, pfizer covid vaccin e. History of Any Multi-Drug Resistant Organisms: None Reported Additional Past Surgical History / Comment(s): Carpal tunnel release right wrist. Past Anesthesia/Blood Transfusion Reactions: Motion Sickness Additional Past Anesthesia/Blood Transfusion Reaction / Comment(s): Has never had general anesthesia. Past Psychological History: No Psychological Hx Reported Smoking Status: Never smoker Past Alcohol Use History: Occasional Past Drug Use History: None Reported - Past Family History Father Family Medical History: Cancer Additional Family Medical History / Comment(s): Lung cancer. Medications and Allergies Home Medications Medication Instructions Recorded Confirmed Type lisinopriL [Zestril] 20 mg PO AC-SUPPER 06/09/21 07/08/21 History Aspirin EC [Ecotrin Low Dose] 81 mg PO AC-SUPPER 07/08/21 07/08/21 History Atorvastatin Calcium [Lipitor] 20 mg PO AC-SUPPER 07/08/21 07/08/21 History Citalopram Hydrobromide 10 mg PO DAILY #30 tablet 07/08/21 Rx [Citalopram HBr] Allergies Allergy/AdvReac Type Severity Reaction Status Date / Time No Known Allergies Allergy Verified 07/08/21 06:56 Physical Exam Vitals: Vital Signs Temp Pulse Pulse Resp BP BP Pulse Ox 07/08/21 11:41 97.9 F 96 20 156/80 97 07/08/21 08:00 98.1 F 78 20 130/73 96 07/08/21 06:31 98.3 F 81 16 96 07/08/21 06:23 81 16 07/08/21 03:23 80 16 128/83 97 07/08/21 02:30 98.3 F 85 17 134/79 96 Intake and Output 07/07/21 07/08/21 07/08/21 22:59 06:59 14:59 Intake Total 0 Balance 0 Intake: Oral 0 Other: Voiding Method Toilet Weight 90.718 kg 90.718 kg Results CBC & Chem 7: 07/08/21 02:33 07/08/21 02:33 Labs: Abnormal Lab Results - Last 24 Hours (Table) 07/08/21 07/08/21 07/08/21 Range/Units 02:33 02:33 11:25 RBC 3.75 L (4.30-5.90) m/uL Hgb 11.3 L (13.0-17.5) gm/dL Hct 33.5 L (39.0-53.0) % RDW 16.3 H (11.5-15.5) % Potassium 3.4 L (3.5-5.1) mmol/L Glucose 110 H (74-99) mg/dL C-Reactive Protein 1.2 H (<1.0) mg/dL Total Protein 5.9 L (6.3-8.2) g/dL Albumin 3.3 L (3.5-5.0) g/dL Thrombosis Risk Factor Assmnt - Choose All That Apply Any of the Below Risk Factors Present?: Yes Each Factor Represents 1 point: Obesity (BMI >25) Each Risk Factor Represents 2 Points: Age 61-74 years Thrombosis Risk Factor Assessment Total Risk Factor Score: 3 Thrombosis Risk Factor Assessment Level: Moderate Risk
--- NOTE | 2021-07-08 14:11 | P.DS ---
Providers Date of admission: 07/08/21 03:55 Attending physician: Fabricio Katz Consults: 07/08/21 03:55 Consult Physician Urgent Consulting Provider: Day Ellison Consult Reason/Comments: cp Do you want consulting provider notified?: Yes 07/08/21 09:37 Consult Physician Urgent Consulting Provider: Mark Burks Consult Reason/Comments: positive blood cultures, on IV antibiotics outpt Do you want consulting provider notified?: Yes 07/08/21 10:44 Consult Physician Routine Consulting Provider: Jacquelyn Clark Consult Reason/Comments: severe MR, mitral valve endocarditis, recommended MVR at [facility] Do you want consulting provider notified?: Yes Primary care physician: Usman Baker [facility] Course: Please refer to my history of present illness for further details Patient Condition at Discharge: Good Plan - Discharge Summary Discharge Rx Participant: No New Discharge Prescriptions: New Citalopram Hydrobromide [Citalopram HBr] 10 mg PO DAILY #30 tablet Continue Atorvastatin Calcium [Lipitor] 20 mg PO AC-SUPPER Aspirin EC [Ecotrin Low Dose] 81 mg PO AC-SUPPER lisinopriL [Zestril] 20 mg PO AC-SUPPER Discharge Medication List lisinopriL [Zestril] 20 mg PO AC-SUPPER 06/09/21 [History] Aspirin EC [Ecotrin Low Dose] 81 mg PO AC-SUPPER 07/08/21 [History] Atorvastatin Calcium [Lipitor] 20 mg PO AC-SUPPER 07/08/21 [History] Citalopram Hydrobromide [Citalopram HBr] 10 mg PO DAILY #30 tablet 07/08/21 [Rx] Follow up Appointment(s)/Referral(s): Usman Baker DO [Primary Care Provider] - 3 Days Discharge Disposition: HOME SELF-CARE
--- NOTE | 2021-07-08 15:10 | P.GSCN ---
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 Veronica Baker. He has a previous medical history of mitral regurgitation followed by Dr. Raya at [facility], hypertension, hyperlipidemia, high anxiety, previous tobacco dependence, rare EtOH currently although was p reviously a heavy drinker, and family history of lung cancer. He was admitted to [facility] last month for fever, chills, leukocytosis, and acute kidney injury. At that time he underwent trans-thoracic echocardiogram which demonstrated normal LV function, moderate mitral regurgitation, mild mitral valve prolapse, and vegetation on the mitral valve could not be ruled out. He had positive blood cultures demonstrating Aerococcus species. 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 He did present to [facility] and had workup including a heart catheterization revealing normal coronaries, and transesophageal echocardiogram demonstrating normal LV function with EF 65-70%, no regional wall motion abnormalities, left atrial dilatation, mitral valve prolapse with thickened leaflets and severe eccentric mitral regurgitation with moderate size mobile anti-air and posterior leaflet vegetation measuring 0.6 x 0.6 cm and 1.3 x 0.9 cm respectively. He was seen by cardiothoracic surgery and workup and sued in preparation for mitral valve surgery. His workup included carotid Dopplers which demonstrated less than 50% internal carotid artery stenosis bilaterally, pulmonary function tests demonstrating FEV1 76% of predicted, and lab work which was unremarkable. He was seen by a dentist he wanted to wait to make any recommendations for dental work until blood cultures were finalized. Apparently the patient did not want to wait NT was discharged from the hospital to follow up with his own dentist for clearance. He was discharged with IV antibiotics per the infectious disease doctor and has been going to the clinic for IV antibiotics for the last couple of weeks. He presented back to [facility] today with complaints of chest pressure occurring with activity and at rest along with some mild shortness of breath. EKG demonstrated no evidence of acute ischemia. Troponins were negative and he was ruled out for acute coronary event, especially given his normal coronaries demonstrated on heart catheterization. He was admitted for observation with consultation placed to cardiology and infectious disease. Transthoracic echocardiogram was completed here which demonstrated EF 55-60, grade 3 diastolic dysfunction, moderate aortic regurgitation, severe anteriorly directed mitral regurgitation with flail posterior leaflet versus vegetation on the posterior leaflet, and moderate pulmonary hypertension with RVSP 61.5 mmHg. He was placed on IV ceftriaxone per Dr. Burks. Consultation was placed to cardiothoracic surgery for recommendation regarding mitral valve. He has remained afebrile, white blood cell count is normal, and last documented blood cultures from 06/11/2021 were negative for any growth. Review of Systems Review of systems was completed and was negative except as noted - Constitutional Reports fever - Cardiovascular Reports as per HPI, Reports chest pain, Reports shortness of breath Past Medical History Past Medical History: Hypertension Additional Past Medical History / Comment(s): Heart murmur, pfizer covid vaccine. History of Any Multi-Drug Resistant Organisms: None Reported Past Surgical History: Tonsillectomy Additional Past Surgical History / Comment(s): Carpal tunnel release right wrist. RK surgery to his eyes Past Anesthesia/Blood Transfusion Reactions: Motion Sickness Additional Past Anesthesia/Blood Transfusion Reaction / Comm: Has never had general anesthesia. Past Psychological History: No Psychological Hx Reported Smoking Status: Former smoker Past Alcohol Use History: Occasional Past Drug Use History: None Reported - Past Family History Father Family Medical History: Cancer Additional Family Medical History / Comment(s): Lung cancer. Mother Family Medical History: Cancer, COPD Medications and Allergies Home Medications Medication Instructions Recorded Confirmed Type lisinopriL [Zestril] 20 mg PO AC-SUPPER 06/09/21 07/08/21 History ALPRAZolam [Xanax] 0.25 mg PO TID PRN 3 Days #9 tab 07/08/21 Rx Aspirin EC [Ecotrin Low Dose] 81 mg PO AC-SUPPER 07/08/21 07/08/21 History Atorvastatin Calcium [Lipitor] 20 mg PO AC-SUPPER 07/08/21 07/08/21 History Citalopram Hydrobromide 10 mg PO DAILY #30 tablet 07/08/21 Rx [Citalopram HBr] Allergies Allergy/AdvReac Type Severity Reaction Status Date / Time No Known Allergies Allergy Verified 07/08/21 06:56 Surgical - Exam Vital Signs Temp Pulse Resp BP Pulse Ox 98.3 F 85 17 134/79 96 07/08/21 02:30 07/08/21 02:30 07/08/21 02:30 07/08/21 02:30 07/08/21 02:30 CONSTITUTIONAL: Awake and alert, appears comfortable, cooperative, well- developed, well-nourished, no pain, no acute distress, very anxious EYES: Pupils equal, round, reactive to light, normal ocular movement ENT: Moist mucous membranes, multiple dental caries NECK: No masses, no bruits, trachea midline RESPIRATORY: Lungs sounds clear to auscultation bilaterally. Respirations even, nonlabored. Currently on room air with oxygen saturation 97%. Strong cough. No chest wall deformities. No clubbing or cyanosis present CARDIOVASCULAR: S1, S2 present, positive loud systolic murmur. Regular rate and rhythm, sinus rhythm on telemetry. Palpable peripheral pulses bilaterally. No edema present. No calf pain or tenderness noted. No significant lower extremity varicosities noted. GASTROINTESTINAL: Abdomen soft, nontender, nondistended without masses or organomegaly noted. There is no rebound or guarding present. Active bowel sounds present 4 quadrants. GENITOURINARY: Deferred INTEGUMENTARY: Skin is warm and dry with evidence of good perfusion. NEUROLOGIC: Cranial nerves II through XII intact, normal coordination, no obvious motor or sensory deficits, speech is normal MUSKULOSKELETAL: Able to move all extremities, strength equal bilaterally, normal posture PSYCHIATRIC: Alert and oriented to person place and time, appropriate affect, intact judgment and insight Results - Labs 07/08/21 02:33 07/08/21 02:33 Abnormal Lab Results - Last 24 Hours (Table) 07/08/21 07/08/21 07/08/21 Range/Units 02:33 02:33 11:25 RBC 3.75 L (4.30-5.90) m/uL Hgb 11.3 L (13.0-17.5) gm/dL Hct 33.5 L (39.0-53.0) % RDW 16.3 H (11.5-15.5) % Potassium 3.4 L (3.5-5.1) mmol/L Glucose 110 H (74-99) mg/dL C-Reactive Protein 1.2 H (<1.0) mg/dL Total Protein 5.9 L (6.3-8.2) g/dL Albumin 3.3 L (3.5-5.0) g/dL Diabetes panel 07/08/21 Range/Units 02:33 Sodium 138 (137-145) mmol/L Potassium 3.4 L (3.5-5.1) mmol/L Chloride 106 (98-107) mmol/L Carbon Dioxide 24 (22-30) mmol/L BUN 14 (9-20) mg/dL Creatinine 0.67 (0.66-1.25) mg/dL Glucose 110 H (74-99) mg/dL Calcium 8.8 (8.4-10.2) mg/dL AST 21 (17-59) U/L ALT 12 (4-49) U/L Alkaline Phosphatase 71 (38-126) U/L Total Protein 5.9 L (6.3-8.2) g/dL Albumin 3.3 L (3.5-5.0) g/dL Calcium panel 07/08/21 Range/Units 02:33 Calcium 8.8 (8.4-10.2) mg/dL Albumin 3.3 L (3.5-5.0) g/dL Pituitary panel 07/08/21 Range/Units 02:33 Sodium 138 (137-145) mmol/L Potassium 3.4 L (3.5-5.1) mmol/L Chloride 106 (98-107) mmol/L Carbon Dioxide 24 (22-30) mmol/L BUN 14 (9-20) mg/dL Creatinine 0.67 (0.66-1.25) mg/dL Glucose 110 H (74-99) mg/dL Calcium 8.8 (8.4-10.2) mg/dL Adrenal panel 07/08/21 Range/Units 02:33 Sodium 138 (137-145) mmol/L Potassium 3.4 L (3.5-5.1) mmol/L Chloride 106 (98-107) mmol/L Carbon Dioxide 24 (22-30) mmol/L BUN 14 (9-20) mg/dL Creatinine 0.67 (0.66-1.25) mg/dL Glucose 110 H (74-99) mg/dL Calcium 8.8 (8.4-10.2) mg/dL Total Bilirubin 0.4 (0.2-1.3) mg/dL AST 21 (17-59) U/L ALT 12 (4-49) U/L Alkaline Phosphatase 71 (38-126) U/L Total Protein 5.9 L (6.3-8.2) g/dL Albumin 3.3 L (3.5-5.0) g/dL - Imaging Chest x-ray: report reviewed, image reviewed EKG: image reviewed Assessment and Plan Assessment: 1. Severe mitral regurgitation with flail posterior leaflet versus vegetation 2. 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 Atypical chest pain present on admission, acute coronary event ruled out, normal coronaries on recent heart catheterization at [facility] 4. History of hypertension 5. History of hyperlipidemia, treated 6. High anxiety 7. Previous tobacco dependence 8. Rare EtOH use currently, previous heavy EtOH dependence 9. Family history of lung cancer Plan: The patient was seen and examined at the bedside on the cardiac stepdown unit. Chart/diagnostics were reviewed. The case was discussed with Dr. Nicolas from cardiothoracic surgery who will see the patient today. Our recommendations at this time are to continue IV antibiotic therapy. Patient should obtain dental clearance, he was given a dental clearance letter to return to us. He may be discharged home from cardiac surgery standpoint to be evaluated on an outpatient basis after obtaining dental clearance and completion of IV antibiotic therapy. Medical management of other comorbidities per primary care service. It was suggested to the patient that he may benefit from follow up with a psychiatrist for his anxiety, patient states he is willing to consider. More recommendations to follow. Thank you for this consult. Time with Patient: Greater than 30 <Krishna Nicolas - Last Filed: 07/08/21 17:23> Surgical - Exam Vital Signs Temp Pulse Resp BP Pulse Ox 98.3 F 85 17 134/79 96 07/08/21 02:30 07/08/21 02:30 07/08/21 02:30 07/08/21 02:30 07/08/21 02:30 Results - Labs 07/08/21 02:33 07/08/21 02:33 Abnormal Lab Results - Last 24 Hours (Table) 07/08/21 07/08/21 07/08/21 Range/Units 02:33 02:33 11:25 RBC 3.75 L (4.30-5.90) m/uL Hgb 11.3 L (13.0-17.5) gm/dL Hct 33.5 L (39.0-53.0) % RDW 16.3 H (11.5-15.5) % Potassium 3.4 L (3.5-5.1) mmol/L Glucose 110 H (74-99) mg/dL C-Reactive Protein 1.2 H (<1.0) mg/dL Total Protein 5.9 L (6.3-8.2) g/dL Albumin 3.3 L (3.5-5.0) g/dL Diabetes panel 07/08/21 Range/Units 02:33 Sodium 138 (137-145) mmol/L Potassium 3.4 L (3.5-5.1) mmol/L Chloride 106 (98-107) mmol/L Carbon Dioxide 24 (22-30) mmol/L BUN 14 (9-20) mg/dL Creatinine 0.67 (0.66-1.25) mg/dL Glucose 110 H (74-99) mg/dL Calcium 8.8 (8.4-10.2) mg/dL AST 21 (17-59) U/L ALT 12 (4-49) U/L Alkaline Phosphatase 71 (38-126) U/L Total Protein 5.9 L (6.3-8.2) g/dL Albumin 3.3 L (3.5-5.0) g/dL Calcium panel 07/08/21 Range/Units 02:33 Calcium 8.8 (8.4-10.2) mg/dL Albumin 3.3 L (3.5-5.0) g/dL Pituitary panel 07/08/21 Range/Units 02:33 Sodium 138 (137-145) mmol/L Potassium 3.4 L (3.5-5.1) mmol/L Chloride 106 (98-107) mmol/L Carbon Dioxide 24 (22-30) mmol/L BUN 14 (9-20) mg/dL Creatinine 0.67 (0.66-1.25) mg/dL Glucose 110 H (74-99) mg/dL Calcium 8.8 (8.4-10.2) mg/dL Adrenal panel 07/08/21 Range/Units 02:33 Sodium 138 (137-145) mmol/L Potassium 3.4 L (3.5-5.1) mmol/L Chloride 106 (98-107) mmol/L Carbon Dioxide 24 (22-30) mmol/L BUN 14 (9-20) mg/dL Creatinine 0.67 (0.66-1.25) mg/dL Glucose 110 H (74-99) mg/dL Calcium 8.8 (8.4-10.2) mg/dL Total Bilirubin 0.4 (0.2-1.3) mg/dL AST 21 (17-59) U/L ALT 12 (4-49) U/L Alkaline Phosphatase 71 (38-126) U/L Total Protein 5.9 L (6.3-8.2) g/dL Albumin 3.3 L (3.5-5.0) g/dL Assessment and Plan Plan: The patient was seen and examined. 60 year old male diagnosed with bacterial endocarditis involving the mitral valve. Patient has been receiving antibiotics for 2 weeks now as directed by ID. Most recent blood cultures are negative. Normal WBC; no fever. He is hemodynamically stable and resting comfortably on room air without dyspnea or leg edema. DAPHNE at [facility] revealed vegetations on both anterior and posterior leaflets with associated severe eccentric MR. Plan to complete course of antibiotics as directed by ID. In addition, he will need dental clearance. He may be discharged home from my standpoint and can follow up in the office to discuss mitral valve replacement in 4 weeks as an outpatient.
[2021-07-08 16:16] VITALS: BP 130/70; PULSE 78; TEMP 98.2
[2021-07-08] MEDS ORDERED: lisinopriL 10 MG TAB PO SCH (17:30)
[2021-07-08] MEDS ORDERED: ASPIRIN 81 MG PO SCH (17:30)
[2021-07-08] MEDS ORDERED: ATORVASTATIN 20 MG TAB PO SCH (17:30)
== END 2021-07-08 17:26 | disposition home or self-care (01) ==
LOC: EC 01:38 → 3SCARD 03:55
PROVIDERS: ADMIT Hospitalist; ATTEND Hospitalist
DX: R07.89 Other chest pain (principal); F41.9 Anxiety disorder, unspecified; I08.0 Rheumatic disorders of both mitral and aortic valves; I10 Essential (primary) hypertension; E78.5 Hyperlipidemia, unspecified; I31.9 Disease of pericardium, unspecified; I47.2 Ventricular tachycardia; I27.20 Pulmonary hypertension, unspecified; E66.9 Obesity, unspecified; Z68.25 Body mass index [BMI] 25.0-25.9, adult; Z79.811 Long term (current) use of aromatase inhibitors; Z87.891 Personal history of nicotine dependence; Z86.59 Personal history of other mental and behavioral disorders; Z80.1 Family history of malignant neoplasm of trachea, bronchus and lung; Z82.5 Family history of asthma and other chronic lower respiratory diseases
CPT/HCPCS: 96365; 99285; 36415; 93005; 93306; 83880; 80053; 85652; 84484; 85025; 85610; 85730; 86140; 87040; 71046; G0378; J0696